=== PATIENT | male | born 1965 | race African-American/Black ===

== ENCOUNTER 2024-09-30 12:00 | Inpatient (IN) | payer MEDICAID ==
[~2024-09-30] VITALS: Ht 172.7 cm; Wt 86.3 kg
[~2024-09-30 12:00] MED LIST: BRIM0.2S17; CLIN1CAP70 PO; DORZ2SOL17; LATA0.008; LEVE100020; SEVE800T10; SUCR5CHW; TIMO0.5S32
--- NOTE | 2024-09-30 13:41 | ED.PDOC ---
History of Present Illness HPI Comments 59M presents to the ER w/ no prior HX associated to the c/c of a cyst. Pt reports on having a "cyst on my bottom, and had it for a while". Pt states that he has had the cyst for 1.5 months. PMHx of HTN and ESRD of T, TH and SAT. Denies chills, fever, N/V/D, SOB, CP or other associated symptoms, modifiers, or recent injuries at this time. Chief Complaint: Abscess Time Seen by MD: 13:25 Primary Care Provider: SHELTON Franco Notes: Nurses Notes, Medications, Allergies Allergies: Coded Allergies: NO KNOWN ALLERGIES (Unverified , 03/12/19) Home Meds Active Scripts Clindamycin Hcl (Clindamycin Hcl) 300 Mg Cap, 300 MG PO TID, #21 Prov:COMPA DUKE MD 03/14/19 Reported Medications Levetiracetam (Levetiracetam) 1,000 Mg Tab 03/14/19 Latanoprost (LATANOPROST) 0.005 % Yris 03/14/19 Brimonidine Tartrate (Brimonidine Tartrate) 0.2 % Yris 03/14/19 Timolol Maleate (Ophth) (Timolol Maleate) 0.5 % Yris 03/14/19 Sevelamer Carbonate (Sevelamer Carbonate) 800 Mg Tab 03/14/19 Dorzolamide Hcl (Dorzolamide Hcl) 2 % Yris 03/14/19 Polynuclear Iron(III)-Oxyhydro (Velphoro) 500 Mg Chw 03/14/19 Information Source: Patient Mode of Arrival: Ambulatory Severity: Moderate Timing: Months Duration: Since onset Prehospital treatment: None Past Medical History PAST MEDICAL HISTORY: ESRD (T, TH and SAT), HTN Surgical History: Denies all surgeries Family History Family History: Reviewed,noncontributory to illness, Unknown Social History Smoker: Non-Smoker Alcohol: Denies ETOH Use Drugs: Denies Drug Use Lives In: Home Constitutional: denies: chills, diaphoresis, fatigue, fever, malaise, sweats, weakness, others EENTM: denies: blurred vision, double vision, ear bleeding, ear discharge, ear drainage, ear pain, ear ringing, eye pain, eye redness, hearing loss, mouth pain, mouth swelling, nasal discharge, nose bleeding, nose congestion, nose pain, photophobia, tearing, throat pain, throat swelling, voice changes, others Respiratory: denies: cough, hemoptysis, orthopnea, SOB at rest, shortness of breath, SOB with excertion, stridor, wheezing, others Cardiovascular: denies: chest pain, dizzy spells, diaphoresis, Dyspnea on exertion, edema, irregular heart beat, left arm pain, lightheadedness, palpitations, PND, syncope, others Gastrointestinal: denies: abdomen distended, abdominal pain, blood streaked bowels, constipated, diarrhea, dysphagia, difficulty swallowing, hematemesis, melena, nausea, poor appetite, poor fluid intake, rectal bleeding, rectal pain, vomiting, others Genitourinary: denies: burning, dysuria, flank pain, frequency, hematuria, incontinence, penile discharge, penile sore, pain, testicle pain, testicle swelling, urgency, others Neurological: denies: dizziness, fainting, headache, left sided numbness, left sided weakness, numbness, paresthesia, pre-existing deficit, right sided numbness, right sided weakness, seizure, speech problems, tingling, tremors, weakness, others Musculoskeletal: denies: back pain, gout, joint pain, joint swelling, muscle pain, muscle stiffness, neck pain, others Integumetry: reports: others (cyst); denies: bruises, change in color, change in hair/nails, dryness, laceration, lesions, lumps, rash, wounds Allergic/Immunocompromised: denies: Difficulty Healing, Frequent Infections, Hives, Itching, others Hematologic/Lymphatic: denies: anemia, blood clots, easy bleeding, easy bruising, swollen glands, others Endocrine: denies: excessive hunger, excessive sweating, excessive thirst, excessive urination, flushing, intolerance to cold, intolerance to heat, unexplained weight gain, unexplained weight loss, others Psychiatric: denies: anxiety, bipolar disorder, depression, hopeless, panic disorder, schizophrenia, sleepless, suicidal, others All Other Systems: Reviewed and Negative Physical Exam General Appearance: Moderate Distress, Normal HEENT: Normal ENT Inspection, Pharynx Normal, TMs Normal Neck: Full Range of Motion, Non-Tender, Normal, Normal Inspection Respiratory: Chest Non-Tender, Lungs Clear, No Accessory Muscle Use, No Respira tory Distress, Normal Breath Sounds Cardiovascular: No Edema, No JVD, No Murmur, No Gallop, Normal Peripheral Pulses, Regular Rate/Rhythm Breast Exam: Deferred Gastrointestinal: No Organomegaly, Non Tender, No Pulsatile Mass, Normal Bowel Sounds, Soft Genitalia: Deferred Pelvic: Deferred Rectal: Deferred Extremities: No calf tenderness, Normal capillary refill, Normal inspection, Normal range of motion, Non-tender, No pedal edema Musculoskeletal : Apperance: Normal Neurologic: Alert, machine stamper II-XII nml as Tested, No Motor Deficits, Normal Affect, Normal Mood, No Sensory Deficits Cerebellar Function: NOT DONE Reflexes: NOT DONE Skin: Dry, Pallor, Warm, Wounds (Sacral) Lymphatic: No Adenopathy Was a procedure done? Was a procedure done?: No Differential Dx Considerations may include: Chronic kidney disease Cellulitis X-Ray, Labs, Meds, VS Vital Signs Date Time Temp Pulse Resp B/P (MAP) Pulse Ox O2 Delivery O2 Flow Rate FiO2 09/30/24 16:33 88 14 139/75 (96) 96 09/30/24 16:24 Room Air* 0 21 09/30/24 14:45 94 16 98 Room Air 09/30/24 14:45 98.6 94 16 143/77 (99) 98 98.6 09/30/24 12:31 98.6 94 16 148/77 (100) 95 Lab Test 09/30/24 14:49 Range/Units White Blood Count 11.2 H 4.4-10.8 10^3/uL Red Blood Count 4.15 L 4.5-5.90 10^6/uL Hemoglobin 10.5 L 13.5-17.5 g/dL Hematocrit 32.9 L 41.0-53.0 % Mean Corpuscular Volume 79.2 L 80.0-100.0 fL Mean Corpuscular Hemoglobin 25.3 L 28.0-32.0 pg Mean Corpuscular Hemoglobin Concent 32.0 32.0-36.0 g/dL Red Cell Distribution Width 18.5 H 11.8-14.3 % Platelet Count 263 140-450 10^3/uL Mean Platelet Volume 8.7 6.9-10.8 fL Neutrophils (%) (Auto) 69.9 37.0-80.0 % Lymphocytes (%) (Auto) 19.5 10.0-50.0 % Monocytes (%) (Auto) 8.0 0.0-12.0 % Eosinophils (%) (Auto) 1.9 0.0-7.0 % Basophils (%) (Auto) 0.7 0.0-2.0 % Neutrophils # (Auto) 7.8 1.6-8.6 10 ^3/uL Lymphocytes # (Auto) 2.2 0.4-5.4 10 ^3/uL Monocytes # (Auto) 0.9 0-1.3 10 ^3/uL Eosinophils # (Auto) 0.2 0-0.8 10 ^3/uL Basophils # (Auto) 0.1 0-0.2 10 ^3/uL Nucleated Red Blood Cells 0.0 % Sodium Level 140 136-145 mmol/L Potassium Level 4.8 3.5-5.1 mmol/L Chloride Level 101 98-107 mmol/L Carbon Dioxide Level 30 20-31 mmol/L Anion Gap 9 5-15 Blood Urea Nitrogen 38 H 9-23 mg/dL Creatinine 10.65 *H 0.700-1.30 mg/dL Glomerular Filtration Rate Calc 5 >90 mL/min BUN/Creatinine Ratio 3.6 L 10.0-20.0 Serum Glucose 80 74-106 mg/dL Calcium Level 9.2 8.7-10.4 mg/dL Patient alert. Has a wound in his sacral area. Vitals stable. Answering all questions. He does get dialysis on Tuesday. Chronic kidney function. WBC elevated. Anemia. Surgical consultation. Nephrology consultation. Reviewed his previous history. Explained to the patient. Continue cardiac monitoring. Was given Rocephin. Was given clindamycin. Time of 1ST Reevaluation: 17:25 Reevaluation 1ST: Unchanged Patient Education/Counseling: Diagnosis, Treatment, Prognosis Family Education/Counseling: No Family Present Departure 1 Departure Time of Disposition: 17:27 Impression: Primary Impression: Cellulitis Qualified Codes: L03.317 - Cellulitis of buttock Additional Impressions: Anemia Qualified Codes: D64.9 - Anemia, unspecified Chronic kidney disease Qualified Codes: N18.9 - Chronic kidney disease, unspecified Disposition: ADMITTED INPATIENT Admit to: Med Surg Condition: Guarded Critical Care Note Critical Care Time?: Yes (45 min-critical care time only) Stability Stability form required: No Heart Score Heart Score: Heart Score Response (Comments) Value History N/A 0 EKG N/A 0 Age N/A 0 Risk Factors N/A 0 Troponin N/A 0 Total 0 I personally scribed for ALBA THORNE MD ([email or web address]) on 09/30/24 at 13:41. Electronically submitted by Raulito Cardoso ([email or web address]). ALBA THORNE MD Sep 30, 2024 13:41
[2024-09-30 15:10] LABS: Basophils # (auto) 0.1 10 ^3/uL (0-0.2); Basophils % (auto) 0.7 % (0.0-2.0); Eosinophils # (auto) 0.2 10 ^3/uL (0-0.8); Eosinophils % (auto) 1.9 % (0.0-7.0); Hematocrit 32.9 % (41.0-53.0); Hemoglobin 10.5 g/dL (13.5-17.5); Lymphocytes # (auto) 2.2 10 ^3/uL (0.4-5.4); Lymphocytes % (auto) 19.5 % (10.0-50.0); Mean Corpuscular Hemoglobin 25.3 pg (28.0-32.0); Mean Corpuscular Volume 79.2 fL (80.0-100.0); Monocytes # (auto) 0.9 10 ^3/uL (0-1.3); Neutrophils # (auto) 7.8 10 ^3/uL (1.6-8.6); Neutrophils % (auto) 69.9 % (37.0-80.0); Platelet Count (auto) 263 10^3/uL (140-450); Red Blood Cells 4.15 10^6/uL (4.5-5.90); Red Cell Distribution Width 18.5 % (11.8-14.3); White Blood Cell 11.2 10^3/uL (4.4-10.8)
[2024-09-30 15:26] LABS: Chloride 101 mmol/L (98-107); Potassium 4.8 mmol/L (3.5-5.1); Sodium 140 mmol/L (136-145)
[2024-09-30 15:27] LABS: Anion Gap 9 (5-15); Carbon Dioxide 30 mmol/L (20-31)
[2024-09-30 15:28] LABS: Calcium 9.2 mg/dL (8.7-10.4)
[2024-09-30 15:32] LABS: Glucose 80 mg/dL (74-106)
[2024-09-30 15:33] LABS: BUN/Creatinine Ratio 3.6 (10.0-20.0); Blood Urea Nitrogen 38 mg/dL (9-23)
[2024-09-30] MEDS: CLINDAMYCIN 300MG IV 50 ML IV ONE (17:40)
[2024-09-30] MEDS: cefTRIAXone 1GM/50ML D5W 50 ML IV ONE (17:40)
[2024-09-30] MEDS ORDERED: NITROGLYCERIN 0.4 MG SL TAB SL PRN (22:00)
[2024-09-30] MEDS ORDERED: MORPHINE SULFATE INJ 2 MG/ml SYRG IV PRN (22:00)
[2024-09-30] MEDS: SODIUM CHLOR 0.9% PF (SALINE LOCK) 10ML VIAL/SYR IV SCH (22:04)
--- NOTE | 2024-09-30 22:44 | DVHHPRES ---
History of Present Illness Resident Creating Document: MERRICK MOREL RESIDENT History of Present Illness This is a 59-year-old male with past medical history of hypertension, ESRD on hemodialysis 3 times a week for last 35 years presented to the ED with a chief complaint of cyst in the left buttock for last 1 month prior to this admission. He mentioned that he developed a cyst 1 month ago in the left buttock and it is popped up and discharging pus mixed with blood for last 3 weeks. He went to urgent care and took antibiotics for this abscess but it is not cured having continuous discharge and he needs to change the dressing 2 or 3 times a day. According to the patient at first the abscess was associated with fever and chills and he finished antibiotics 2 times for this but it did not resolve the abscess that prompted this visit. He denies chest pain, shortness of breath, dizziness, diaphoresis, abdominal pain, nausea, vomiting or any change in bowel and bladder habit. Cardiovascular: HTN Past Medical History Hypertension, ESRD on hemodialysis. Past Surgical History Parathyroidectomy, knee surgery and surgery for the dislocated shoulder on the left side. Family History: None Smoke: No ALCOHOL: none Drugs: None Lives: with Family Review of Systems Constitutional: No: Fever, Chills, Sweats, Weakness, Malaise, Other Eyes: No: Pain, Vision change, Conjunctivae inflammation, Eyelid inflammation, Other, Redness ENT: No: Ear pain, Ear discharge, Nose pain, Nose discharge, Nose congestion, Mouth pain, Mouth swelling, Throat pain, Throat swelling, Other Respiratory: No: Cough, Dry, Shortness of breath, SOB with excertion, Wheezing, Hemoptysis, Pleuritic Pain, Sputum, Wheezing, Other Cardiovascular: No: Chest Pain, Palpitations, Orthopnea, Paroxysmal Noc. Dyspnea, Edema, Lt Headedness, Other Gastrointestinal: No: Nausea, Vomiting, Abdominal Pain, Diarrhea, Constipation, Melena, Hematochezia, Other Genitourinary: No Dysuria, No Frequency, No Incontinence, No Hematuria, No Retention, No Other Musculoskeletal: No: other, neck pain, shoulder pain, arm pain, back pain, hand pain, leg pain, foot pain Skin: Lesions, Other; No: Rash, Jaundice, Bruising Neurological: No: Weakness, Numbness, Incoordination, Change in speech, Confusion, Seizures, Other Allergies: Coded Allergies: NO KNOWN ALLERGIES (Unverified , 03/12/19) Medications Current Medications Medications Dose Ordered Sig/Dane Route Start Time Stop Time Status Last Admin Dose Admin Sodium Chloride 10 ml Q8HR IV 09/30/24 22:00 09/30/24 22:04 10 ML Acetaminophen/ Hydrocodone Bitart 1 tab Q4HP PRN PO 09/30/24 22:00 Nitroglycerin 0.4 mg Q5MINP PRN SL 09/30/24 22:00 Morphine Sulfate 2 mg Q30M PRN IV 09/30/24 22:00 Clindamycin Phosphate 50 ml @ 50 mls/hr Q8HR IV 10/01/24 06:00 Heparin Sodium (Porcine) 5,000 units Q12HR SC 10/01/24 10:00 Exam Vital Signs Vital Signs Date Time Temp Pulse Resp B/P (MAP) Pulse Ox O2 Delivery O2 Flow Rate FiO2 09/30/24 20:22 97.6 92 16 138/72 (94) 99 97.6 09/30/24 16:24 Room Air* 0 21 Exam Physical examination: General Appearance: Alert, Oriented X3, Cooperative, No acute distress HEENT: Atraumatic, PERRLA, EOMI, Mucous membrane moist/pink Respiratory: Clear to auscultation, Normal air movement Cardiovascular: Regular rate, Normal S1, Normal S2, No murmurs, no chest wall t enderness Abdominal: Normal bowel sounds, Soft, No tenderness, No hepatospenomegaly, No masses Extremities: Healed and new av fistula in both upper extremities, No clubbing, No cyanosis, No edema, Normal pulses, No tenderness/swelling Skin,: Discharging abscess in the left buttock, No rashes, No breakdown, No significant lesion Neuro: Normal gait, Normal speech, Strength at 5/5 X4 ext, Normal tone, Sensation intact. Psych/Mental Status: Mental status NL, Mood NL Labs/Xrays Labs Test 09/30/24 14:49 Range/Units White Blood Count 11.2 H 4.4-10.8 10^3/uL Red Blood Count 4.15 L 4.5-5.90 10^6/uL Hemoglobin 10.5 L 13.5-17.5 g/dL Hematocrit 32.9 L 41.0-53.0 % Mean Corpuscular Volume 79.2 L 80.0-100.0 fL Mean Corpuscular Hemoglobin 25.3 L 28.0-32.0 pg Mean Corpuscular Hemoglobin Concent 32.0 32.0-36.0 g/dL Red Cell Distribution Width 18.5 H 11.8-14.3 % Platelet Count 263 140-450 10^3/uL Mean Platelet Volume 8.7 6.9-10.8 fL Neutrophils (%) (Auto) 69.9 37.0-80.0 % Lymphocytes (%) (Auto) 19.5 10.0-50.0 % Monocytes (%) (Auto) 8.0 0.0-12.0 % Eosinophils (%) (Auto) 1.9 0.0-7.0 % Basophils (%) (Auto) 0.7 0.0-2.0 % Neutrophils # (Auto) 7.8 1.6-8.6 10 ^3/uL Lymphocytes # (Auto) 2.2 0.4-5.4 10 ^3/uL Monocytes # (Auto) 0.9 0-1.3 10 ^3/uL Eosinophils # (Auto) 0.2 0-0.8 10 ^3/uL Basophils # (Auto) 0.1 0-0.2 10 ^3/uL Nucleated Red Blood Cells 0.0 % Sodium Level 140 136-145 mmol/L Potassium Level 4.8 3.5-5.1 mmol/L Chloride Level 101 98-107 mmol/L Carbon Dioxide Level 30 20-31 mmol/L Anion Gap 9 5-15 Blood Urea Nitrogen 38 H 9-23 mg/dL Creatinine 10.65 *H 0.700-1.30 mg/dL Glomerular Filtration Rate Calc 5 >90 mL/min BUN/Creatinine Ratio 3.6 L 10.0-20.0 Serum Glucose 80 74-106 mg/dL Calcium Level 9.2 8.7-10.4 mg/dL Assessment/Plan Assessment/Plan Assessment and plan: # Cellulitis of the left buttock - On examination there are multiple discharging abscess in the left buttock. - the count is elevated - IV clindamycin 300 mg t.i.d. - Consulted surgery for possible incision and drainage # ESRD on hemodialysis - Patient is on hemodialysis 3 times a week Tuesday, and Tuesday - Consulted nephrology # DVT prophylaxis - Heparin 5000 units SC b.i.d. Goal of care discussed with the patient for more than 20 minutes full code Plan of treatment discussed with Dr. Watkins Plan discussed with: Patient, Other My Orders Orders - MERRICK MOREL RESIDENT Procedure Category Date Status Time Admit ADMIT 09/30/24 Transmitted 21:55 Allergies ELVIS 09/30/24 In Process 21:55 Code Status CODE 09/30/24 Transmitted 21:55 Renal DIET 10/01/24 Transmitted Standard(2gna,3gk,Lopho) Breakfast Sodium Chloride Lock PHA 09/30/24 In Process (Saline Lock Ns) 22:00 Hydrocodone-Acet PHA 09/30/24 In Process 5/325mg Tab ([place] 22:00 Complete Blood Count LAB 10/01/24 Verified 04:00 Comprehensive LAB 10/01/24 Verified Metabolic Panel 04:00 Sequential ELVIS 09/30/24 In Process Compression Device Nitroglycerin PHA 09/30/24 In Process Sublingual (Ntrostat 22:00 Morphine Sulfate PHA 09/30/24 In Process Injection 22:00 Oxygen By Nasal RT 09/30/24 Transmitted Cannula 21:55 Stat Ekg For Chest ELVIS 09/30/24 In Process Pain 21:55 Notify Md Of Changes ELVIS 09/30/24 In Process From Base 21:55 Pre Owned Sales Consultant For ELVIS 09/30/24 In Process 24 Hours 21:55 Emergency Dysrhythmia ELVIS 09/30/24 In Process Protocol 21:55 Rhythm Strips Once ELVIS 09/30/24 In Process Every Shift 21:55 *Dr. Natasha Diaz -Da CONS 09/30/24 Transmitted Barbara 22:23 Clindamycin 300mg Iv PHA 10/01/24 In Process (Cleocin Iv) 06:00 Heparin Sodium PHA 10/01/24 In Process (Porcine) 10:00 * Surgical Consult CONS 09/30/24 Transmitted MERRICK MOREL RESIDENT Sep 30, 2024 22:44
[2024-10-01] VITALS (7 sets, daily range): BP systolic 149–172; BP diastolic 82–90; PULSE 92–95; RESP 18–20; TEMP 98–99.2; O2SAT 95–98
[2024-10-01 00:01] LABS: INR 1.05 (0.9-1.15); Partial Thromboplastin Time 33.1 SEC (24.5-34.5); Prothrombin Time 11.1 sec (9.3-11.8)
[2024-10-01] MEDS ORDERED: ALBU1NEB5 IN (06:07)
[2024-10-01] MEDS ORDERED: NETA1DRO OP (06:07)
[2024-10-01] MEDS ORDERED: CARV12.544 PO (06:07)
[2024-10-01] MEDS ORDERED: CETI10TA2 PO (06:07)
[2024-10-01] MEDS ORDERED: LEVE500T40 PO (06:07)
[2024-10-01] MEDS ORDERED: SEVE800T7 PO (06:07)
[2024-10-01] MEDS ORDERED: B-CO-6 PO (06:07)
[2024-10-01] MEDS ORDERED: TENA30TA PO (06:07)
[2024-10-01] MEDS ORDERED: DORZ2SOL18 EACHEYE (06:07)
[2024-10-01] MEDS ORDERED: AMLO1TAB22 PO (06:07)
[2024-10-01] MEDS ORDERED: HYDR-4902 PO (06:07)
[2024-10-01 06:31] LABS: Basophils # (auto) 0.1 10 ^3/uL (0-0.2); Basophils % (auto) 0.5 % (0.0-2.0); Eosinophils # (auto) 0.2 10 ^3/uL (0-0.8); Hematocrit 31.6 % (41.0-53.0); Hemoglobin 9.7 g/dL (13.5-17.5); Lymphocytes # (auto) 2.2 10 ^3/uL (0.4-5.4); Lymphocytes % (auto) 17.7 % (10.0-50.0); Mean Corpuscular Hemoglobin 24.3 pg (28.0-32.0); Mean Corpuscular Hgb Conc. 30.7 g/dL (32.0-36.0); Mean Corpuscular Volume 79.2 fL (80.0-100.0); Monocytes % (auto) 8.2 % (0.0-12.0); Neutrophils # (auto) 8.8 10 ^3/uL (1.6-8.6); Neutrophils % (auto) 71.6 % (37.0-80.0); Platelet Count (auto) 238 10^3/uL (140-450); Red Blood Cells 3.99 10^6/uL (4.5-5.90); Red Cell Distribution Width 18.3 % (11.8-14.3); White Blood Cell 12.3 10^3/uL (4.4-10.8)
[2024-10-01 06:38] LABS: Alkaline Phosphatase 53 U/L (46-116); Anion Gap 13 (5-15); BUN/Creatinine Ratio 4.2 (10.0-20.0); Calcium 8.7 mg/dL (8.7-10.4); Carbon Dioxide 27 mmol/L (20-31); Chloride 103 mmol/L (98-107); Glucose 72 mg/dL (74-106); Sodium 143 mmol/L (136-145)
[2024-10-01 06:39] LABS: Albumin 3.8 g/dL (3.2-4.8); Aspartate Aminotransferase 10 U/L (13-40); Bilirubin, Total 0.2 mg/dL (0.2-1.0); Total Protein 7.4 g/dL (5.7-8.2)
[2024-10-01 06:40] LABS: Alanine Aminotransferase < 9 U/L (7-40); Blood Urea Nitrogen 53 mg/dL (9-23)
--- NOTE | 2024-10-01 06:47 | DVH ---
CHEST RADIOGRAPH Indication:shortness of breath Technique: Single frontal view of the chest was obtained Comparison: None FINDINGS: Lines and Tubes: None Lungs: No focal consolidation. Pleura: No effusion. No pneumothorax. Cardiomediastinal contours: Unremarkable Bones: No acute osseous abnormality. IMPRESSION: No acute cardiopulmonary disease.
[2024-10-01] MEDS: CLINDAMYCIN 300MG IV 50 ML IV SCH (06:53)
[2024-10-01] MEDS: HEPARIN SODIUM (PORCINE) 5000 UNITS/ML 1ML VIAL SC SCH (10:30)
--- NOTE | 2024-10-01 17:33 | DVHINCON2 ---
Date of service: Oct 01, [address] Hunt Reason for Consultation ESRD History of Present Illness This is a 59-year-old male with past medical history of ESRD on hemodialysis ,HTN presenting to the ED with a chief complaint of cyst in the left buttock for last 1 month . He mentioned that he developed a cyst 1 month ago in the left buttock and it is popped up and discharging pus mixed with blood for last 3 weeks. He went to urgent care and took antibiotics for this abscess but it is not cured having continuous discharge and he needs to change the dressing 2 or 3 times a day. According to the patient at first the abscess was associated with fever and chills and he finished antibiotics 2 times for this but it did not resolve the abscess that prompted this visit. He denies chest pain, shortness of breath, dizziness, diaphoresis, abdominal pain, nausea, vomiting or any change in bowel and bladder habit. Nephrology consulted for continuation of HD . Last HD was on Sat Past Medical History ESRD HTN Past Surgical History AVF Family History: Diabetes mellitus G8 BROTHER G8 SISTER G8 SISTER FH: CHF (congestive heart failure) G8 FATHER ( at 64-65) FH: pneumonia G8 MOTHER ( from [facility] at 72 yrs old) Allergies: Coded Allergies: NO KNOWN ALLERGIES (Unverified , 03/12/19) Home Meds Reported Medications Albuterol Sulfate (Albuterol Sulfate (5 mg/ml) 0.5%) 1 Neb Neb, 1 NEB IN, INH 10/01/24 Sevelamer Hydrochloride (Renagel) 800 Mg Tab, 800 MG PO TID, TAB 10/01/24 Cetirizine Hcl (Kls Aller-Yogi) 10 Mg Tab, 10 MG PO DAILY, TAB 10/01/24 Netarsudil Dimesylate-Latanopr (Rocklatan 0.02-0.005 %) 1 Koffi Koffi, 1 KOFFI OP HS, KOFFI 10/01/24 Dorzolamide-Timolol (Dorzolamide Hcl/Timolol M) 1 Ml Yris, 1 DROP EACHEYE BID, #10 ML 6 Refills 10/01/24 Carvedilol (Carvedilol) 12.5 Mg Tab, 12.5 MG PO Q12HR for 30 Days, MG 10/01/24 Levetiracetam (Keppra) 500 Mg Tab, 500 MG PO POSTDI, TAB 10/01/24 Amlodipine Besylate (Amlodipine Besylate) 5 Mg Tab, 10 MG PO DAILY for 30 Days, MG 10/01/24 Tenapanor HCl (Xphozah) 30 Mg Tab, 30 MG PO DAILY, TAB 10/01/24 B-Complex W/ C & Folic Acid (Beatriz-Katy Rx) Tab, 1 PO DAILY, TAB 10/01/24 Hydrocodone-Acetaminophen (Hydrocodone Bitartrate/AC 5-325 mg) 1 Tab Tab, 1 TAB PO DAILY, TAB 10/01/24 Current Medications Current Medications Medications (Trade) Dose Ordered Sig/Dane Route PRN Reason Start Time Stop Time Status Last Admin Sodium Chloride (Saline Lock Ns) 10 ml Q8HR IV 09/30/24 22:00 10/01/24 13:22 Acetaminophen/ Hydrocodone Bitart (Robbins 5/325MG Tab) 1 tab Q4HP PRN PO MODERATE PAIN (4-6 PAIN SCALE) 09/30/24 22:00 Nitroglycerin (Ntrostat Sublingual) 0.4 mg Q5MINP PRN SL FOR CHEST PAIN 09/30/24 22:00 Morphine Sulfate 2 mg Q30M PRN IV FOR CHEST PAIN 09/30/24 22:00 Clindamycin Phosphate 50 ml @ 50 mls/hr Q8HR IV 10/01/24 06:00 10/01/24 13:22 Heparin Sodium (Porcine) 5,000 units Q12HR SC 10/01/24 10:00 10/01/24 10:30 Hydralazine HCl (Apresoline Injection) 10 mg Q6HP PRN IV SBP>150 10/01/24 09:00 Review of Systems 12 POINT ROS NEGATIVE EXCEPT IN HPI Vital Signs Vital Signs Date Time Temp Pulse Resp B/P (MAP) Pulse Ox O2 Delivery O2 Flow Rate FiO2 10/01/24 17:00 99.2 94 20 172/90 (117) 96 99.2 10/01/24 08:00 Room Air* 0 21 Physical Exam General Appearance: Alert, Oriented X3, Cooperative, No acute distress HEENT: Atraumatic, PERRLA, EOMI, Mucous membrane moist/pink Respiratory: Clear to auscultation, Normal air movement Cardiovascular: Regular rate, Normal S1, Normal S2, No murmurs, no chest wall tenderness Abdominal: Normal bowel sounds, Soft, No tenderness, No hepatospenomegaly, No masses Extremities: No edema . Left buttock abscess Labs/Diagnostic Data Labs Test 10/01/24 05:05 09/30/24 23:30 Range/Units White Blood Count 12.3 H 4.4-10.8 10^3/uL Red Blood Count 3.99 L 4.5-5.90 10^6/uL Hemoglobin 9.7 L 13.5-17.5 g/dL Hematocrit 31.6 L 41.0-53.0 % Mean Corpuscular Volume 79.2 L 80.0-100.0 fL Mean Corpuscular Hemoglobin 24.3 L 28.0-32.0 pg Mean Corpuscular Hemoglobin Concent 30.7 L 32.0-36.0 g/dL Red Cell Distribution Width 18.3 H 11.8-14.3 % Platelet Count 238 140-450 10^3/uL Mean Platelet Volume 9.0 6.9-10.8 fL Neutrophils (%) (Auto) 71.6 37.0-80.0 % Lymphocytes (%) (Auto) 17.7 10.0-50.0 % Monocytes (%) (Auto) 8.2 0.0-12.0 % Eosinophils (%) (Auto) 2.0 0.0-7.0 % Basophils (%) (Auto) 0.5 0.0-2.0 % Neutrophils # (Auto) 8.8 H 1.6-8.6 10 ^3/uL Lymphocytes # (Auto) 2.2 0.4-5.4 10 ^3/uL Monocytes # (Auto) 1.0 0-1.3 10 ^3/uL Eosinophils # (Auto) 0.2 0-0.8 10 ^3/uL Basophils # (Auto) 0.1 0-0.2 10 ^3/uL Nucleated Red Blood Cells 0.0 % Sodium Level 143 136-145 mmol/L Potassium Level 5.0 3.5-5.1 mmol/L Chloride Level 103 98-107 mmol/L Carbon Dioxide Level 27 20-31 mmol/L Anion Gap 13 5-15 Blood Urea Nitrogen 53 #H 9-23 mg/dL Creatinine 12.51 *H 0.700-1.30 mg/dL Glomerular Filtration Rate Calc 4 >90 mL/min BUN/Creatinine Ratio 4.2 L 10.0-20.0 Serum Glucose 72 L 74-106 mg/dL Calcium Level 8.7 8.7-10.4 mg/dL Phosphorus Level 6.8 H 2.4-5.1 mg/dL Total Bilirubin 0.2 0.2-1.0 mg/dL Aspartate Amino Transferase (AST) 10 L 13-40 U/L Alanine Aminotransferase (ALT) < 9 7-40 U/L Alkaline Phosphatase 53 46-116 U/L Total Protein 7.4 5.7-8.2 g/dL Albumin 3.8 3.2-4.8 g/dL Prothrombin Time 11.1 9.3-11.8 sec Prothrombin Time INR 1.05 0.9-1.15 Activated Partial Thromboplast Time 33.1 24.5-34.5 SEC Microbiology Date/Time Source Procedure Growth Status 10/01/24 05:30 Nose MRSA Screen - Final Complete Assessment ESRD on HD Left buttock abscess HTN Secondary Hyperparathyroidism Plan/Recommendation IV antibiotics . HD on I &D on Tue Plan discussed with: Patient EVANGELISTA MUÑOZ MD Oct 01, 2024 17:33
[2024-10-01] MEDS: hydrALAZINE HCL 20 MG/ML VL IV PRN (18:51)
--- NOTE | 2024-10-01 19:13 | DVHPNRES ---
Progress Note Date Seen: Oct 01, 2024 Resident Creating Document: RAFI NICOLAS Has the PT tested + for MRSA If YES, has PT been informed?: No Medical Necessity Reason Pt with a Central, PICC or Fol: No Subjective Review of Systems This is a 59-year-old male with a past medical history of hypertension and ESRD on hemodialysis 3 times a week for the last 35 years. He presented to the ED with a chief complaint of a draining lesion in the left buttock for the last month prior to this admission. He mentioned that he developed the lesion 1 month ago in the left buttock, and it has been discharging pus mixed with blood for the last 3 weeks. He went to urgent care and took antibiotics for this abscess, but it has not cured, having continuous discharge, and he needs to change the dressing 2 or 3 times a day. According to the patient, at first, the abscess was associated with fever and chills, and he finished antibiotics 2 times for this, but it did not resolve the abscess, prompting this visit. He denies chest pain, shortness of breath, dizziness, diaphoresis, abdominal pain, nausea, vomiting, or any change in bowel and bladder habits. 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 On examination during admission, there was a painful red lesion on the left buttock with multiple sinuses draining pus and scar tissue from previous healed abscesses on the arm, arm bed, and right buttock. Vitally, the patient had elevated bladder pressure; otherwise, vitals were within normal limits. Chest X- ray showed no acute cardiopulmonary abnormality. The patient was admitted for the evaluation of a possible abscess. During the admission, the patient was put on abscess treatment (IV clindamycin with topical mupirocin). Patient reports: No new complaints, Feels better Changes from previous H/P or p: No Changes Objective vital signs Vital Sign Date Time Temp Pulse Resp B/P (MAP) Pulse Ox O2 Delivery O2 Flow Rate FiO2 10/01/24 17:00 99.2 94 20 172/90 (117) 96 99.2 10/01/24 08:00 Room Air* 0 21 Total Intake and Output 09/30/24 09/30/24 10/01/24 15:00 23:00 07:00 Intake Total 100 ml 0 ml Output Total 0 ml Balance 100 ml 0 ml medications Current Medications Medications Dose Ordered Sig/Dane Route Start Time Stop Time Status Last Admin Dose Admin Sodium Chloride 10 ml Q8HR IV 09/30/24 22:00 10/01/24 13:22 10 ML Acetaminophen/ Hydrocodone Bitart 1 tab Q4HP PRN PO 09/30/24 22:00 Nitroglycerin 0.4 mg Q5MINP PRN SL 09/30/24 22:00 Morphine Sulfate 2 mg Q30M PRN IV 09/30/24 22:00 Clindamycin Phosphate 50 ml @ 50 mls/hr Q8HR IV 10/01/24 06:00 10/01/24 13:22 50 MLS/HR Heparin Sodium (Porcine) 5,000 units Q12HR SC 10/01/24 10:00 10/01/24 10:30 5,000 UNITS Hydralazine HCl 10 mg Q6HP PRN IV 10/01/24 09:00 Examination General Appearance: Alert, Oriented X3, Cooperative, No acute distress HEENT: Atraumatic, PERRLA, EOMI, Mucous membrane moist/pink Respiratory: Clear to auscultation, Normal air movement Cardiovascular: Regular rate, Normal S1, Normal S2, No murmurs, no chest wall tenderness Abdominal: Normal bowel sounds, Soft, No tenderness, No hepatospenomegaly, No masses Extremities: No clubbing, No cyanosis, No edema, Normal pulses, No tenderness/swelling Skin: painful red lesion on the left buttock with multiple sinuses draining pus and scar tissue from previous healed abscesses on the arm, arm bed, and right buttock laboratory and microbiology Laboratory Tests 10/01/24 05:05 Test 10/01/24 05:05 Range/Units Serum Glucose 72 L 74-106 mg/dL Microbiology Date/Time Source Procedure Growth Status 10/01/24 05:30 Nose MRSA Screen - Final Complete Labs and/or images reviewed: Labs reviewed by me, Image(s) reviewed by me Problem List/Assessment/Plan Problem List/Assessment/Plan Abscess/Cellulitis of the left buttock Left side dark red lesion with multiple draining sinuses Surgery on the board, plan for tomorrow incision and drainage IV clindamycin Topical mupirocin Wound consult ESRD on hemodialysis Patient is on hemodialysis 3 times a week Tuesday, and Tuesday Nephrology on the board Continue sevelamer Uncontrolled hypertension Continue amlodipine IV hydralazine 10 mg q.6 hours p.r.n. DVT prophylaxis Heparin 5000 units SC b.i.d. Diet Renal Code status Full Code Case discussed with Dr. Watkins Plan discussed with: Patient My Orders My Orders Orders - RAFI NICOLAS Procedure Category Date Status Time Hydralazine Injection PHA 10/01/24 In Process (Apresoline Inject 09:00 Mrsa Screen TAI 10/01/24 Logged 15:32 Cleanse Wound With ELVIS 10/01/24 In Process Wound Clean 17:06 Dietary Evaluation Review Comments: Follow renal standard diet and his HD protocol, encourage PO intake to meet at least 75% of his needs. Expected Outcomes/Goals: Less uremic symptoms. RAFI NICOLAS Oct 01, 2024 19:13
[2024-10-01] MEDS: CARVEDILOL 12.5 MG TAB PO SCH (21:18)
[2024-10-01] MEDS: amLODIPine BESYLATE 5 MG TAB PO ONE (21:18)
[2024-10-01] MEDS: DORZOLAM-TIMOLOL(2/0.5%) OPTH(EYE) SOLN 10ML EACHEYE SCH (22:00)
[2024-10-02] VITALS (10 sets, daily range): BP systolic 126–165; BP diastolic 50–87; PULSE 84–101; RESP 17–19; TEMP 97.7–98.6; O2SAT 95–100
[2024-10-02] MEDS: HYDROcodone-ACET 5/325MG TAB PO PRN (05:41)
[2024-10-02 06:36] LABS: Basophils # (auto) 0 10 ^3/uL (0-0.2); Basophils % (auto) 0.3 % (0.0-2.0); Hematocrit 30.1 % (41.0-53.0); Mean Corpuscular Hgb Conc. 31.4 g/dL (32.0-36.0); Monocytes # (auto) 0.8 10 ^3/uL (0-1.3)
[2024-10-02 06:38] LABS: Eosinophils # (auto) 0.3 10 ^3/uL (0-0.8); Eosinophils % (auto) 2.4 % (0.0-7.0); Hemoglobin 9.4 g/dL (13.5-17.5); Lymphocytes # (auto) 2.5 10 ^3/uL (0.4-5.4); Lymphocytes % (auto) 21.5 % (10.0-50.0); Mean Corpuscular Hemoglobin 24.7 pg (28.0-32.0); Mean Corpuscular Volume 78.8 fL (80.0-100.0); Monocytes % (auto) 6.5 % (0.0-12.0); Neutrophils # (auto) 8.2 10 ^3/uL (1.6-8.6); Neutrophils % (auto) 69.3 % (37.0-80.0); Platelet Count (auto) 251 10^3/uL (140-450); Red Blood Cells 3.82 10^6/uL (4.5-5.90); Red Cell Distribution Width 18.1 % (11.8-14.3); White Blood Cell 11.9 10^3/uL (4.4-10.8)
[2024-10-02 06:46] LABS: Calcium 8.8 mg/dL (8.7-10.4); Chloride 104 mmol/L (98-107); Potassium 5.3 mmol/L (3.5-5.1); Sodium 142 mmol/L (136-145)
[2024-10-02 06:47] LABS: Anion Gap 13 (5-15); Carbon Dioxide 25 mmol/L (20-31)
[2024-10-02 06:52] LABS: BUN/Creatinine Ratio 4.4 (10.0-20.0); Glucose 78 mg/dL (74-106)
[2024-10-02 06:58] LABS: Blood Urea Nitrogen 63 mg/dL (9-23)
[2024-10-02] MEDS: SODIUM ZIRCONIUM CYCL 10 GM PAK PO ONE (08:30)
[2024-10-02] MEDS: SODIUM BICARB 8.4% 50Meq/50ml SYR INJ IV ONE (08:30)
[2024-10-02] MEDS: ALBUTEROL SULF 2.5 MG/0.5ML(0.5%) NEB SOLN NEB ONE (08:46)
[2024-10-02] MEDS: SEVELAMER 800 MG TAB PO SCH (09:13)
[2024-10-02] MEDS: amLODIPine BESYLATE 5 MG TAB PO SCH (09:17)
[2024-10-02] MEDS ORDERED: SODIUM ZIRCONIUM CYCL 10 GM PAK PO SCH (14:00)
--- NOTE | 2024-10-02 14:08 | DVHPN2 ---
Progress Note - Dictate Date Seen: Oct 02, 2024 Has the PT tested + for MRSA If YES, has PT been informed?: No Medical Necessity Reason Pt with a Central, PICC or Fol: No Subjective Patient underwent dialysis today with ultrafiltration of 2 L. No acute issues. vital signs Vital Sign Date Time Temp Pulse Resp B/P (MAP) Pulse Ox O2 Delivery O2 Flow Rate FiO2 10/02/24 10:00 100 Room Air* 0 21 10/02/24 09:17 150/87 10/02/24 09:16 88 10/02/24 09:00 97.7 18 97.7 Total Intake and Output 10/01/24 10/01/24 10/02/24 15:00 23:00 07:00 Intake Total 420 ml 550 ml Output Total 0 ml 0 ml Balance 420 ml 550 ml medications Current Medications Medications Dose Ordered Sig/Dane Route Start Time Stop Time Status Last Admin Dose Admin Sodium Chloride 10 ml Q8HR IV 09/30/24 22:00 10/02/24 13:06 10 ML Acetaminophen/ Hydrocodone Bitart 1 tab Q4HP PRN PO 09/30/24 22:00 10/02/24 05:41 1 TAB Nitroglycerin 0.4 mg Q5MINP PRN SL 09/30/24 22:00 Morphine Sulfate 2 mg Q30M PRN IV 09/30/24 22:00 Clindamycin Phosphate 50 ml @ 50 mls/hr Q8HR IV 10/01/24 06:00 10/02/24 13:02 50 MLS/HR Heparin Sodium (Porcine) 5,000 units Q12HR SC 10/01/24 10:00 10/01/24 21:24 5,000 UNITS Hydralazine HCl 10 mg Q6HP PRN IV 10/01/24 09:00 10/01/24 18:51 10 MG Amlodipine Besylate 10 mg DAILY PO 10/02/24 10:00 Carvedilol 12.5 mg Q12HR PO 10/01/24 22:00 10/01/24 21:18 12.5 MG Levetiracetam 500 mg POSTDI PO 10/01/24 20:00 Sevelamer HCl 800 mg TIDWM PO 10/02/24 08:00 10/02/24 13:02 800 MG Dorzolamide/ Timolol 1 drop BID EACHEYE 10/01/24 22:00 Zirconium Oxide 10 gm TID PO 10/02/24 14:00 10/04/24 06:01 objective General Appearance: Alert, Oriented X3, Cooperative, No acute distress HEENT: Atraumatic, PERRLA, EOMI, Mucous membrane moist/pink Respiratory: Clear to auscultation, Normal air movement Cardiovascular: Regular rate, Normal S1, Normal S2, No murmurs, no chest wall tenderness Abdominal: Normal bowel sounds, Soft, No tenderness, No hepatospenomegaly, No masses Extremities: No edema . Left buttock abscess laboratory and microbiology Laboratory Tests 10/02/24 05:56 Test 10/02/24 05:56 Range/Units Serum Glucose 78 74-106 mg/dL Problem List ESRD on HD Left buttock abscess HTN Secondary Hyperparathyroidism Assessment/Plan Continue dialysis on TTS schedule. No indication to further continue Lokelma. Labs in a.m. Continue with IV antibiotics I and D tomorrow. Dietary Evaluation Review Comments: Follow renal standard diet and his HD protocol, encourage PO intake to meet at least 75% of his needs. Expected Outcomes/Goals: Less uremic symptoms. Plan discussed with: Patient EVANGELISTA MUÑOZ MD Oct 02, 2024 14:08
[2024-10-02] MEDS ORDERED: hydrALAZINE HCL 20 MG/ML VL IV PRN (15:45)
--- NOTE | 2024-10-02 15:48 | DVHPNRES ---
Progress Note Date Seen: Oct 02, 2024 Resident Creating Document: RAFI NICOLAS YEHUDA Has the PT tested + for MRSA If YES, has PT been informed?: No Medical Necessity Reason Pt with a Central, PICC or Fol: No Subjective Review of Systems Patient seen and examined at the bedside. Patient is feeling better since admission but has mild left buttock pain. Patient reports: No new complaints Changes from previous H/P or p: Changes Objective vital signs Vital Sign Date Time Temp Pulse Resp B/P (MAP) Pulse Ox O2 Delivery O2 Flow Rate FiO2 10/02/24 13:00 97.8 86 17 160/75 (103) 97 97.8 10/02/24 10:00 Room Air* 0 21 Total Intake and Output 10/01/24 10/01/24 10/02/24 15:00 23:00 07:00 Intake Total 420 ml 550 ml Output Total 0 ml 0 ml Balance 420 ml 550 ml medications Current Medications Medications Dose Ordered Sig/Dane Route Start Time Stop Time Status Last Admin Dose Admin Sodium Chloride 10 ml Q8HR IV 09/30/24 22:00 10/02/24 13:06 10 ML Acetaminophen/ Hydrocodone Bitart 1 tab Q4HP PRN PO 09/30/24 22:00 10/02/24 05:41 1 TAB Nitroglycerin 0.4 mg Q5MINP PRN SL 09/30/24 22:00 Morphine Sulfate 2 mg Q30M PRN IV 09/30/24 22:00 Clindamycin Phosphate 50 ml @ 50 mls/hr Q8HR IV 10/01/24 06:00 10/02/24 13:02 50 MLS/HR Heparin Sodium (Porcine) 5,000 units Q12HR SC 10/01/24 10:00 10/01/24 21:24 5,000 UNITS Hydralazine HCl 10 mg Q6HP PRN IV 10/01/24 09:00 10/01/24 18:51 10 MG Amlodipine Besylate 10 mg DAILY PO 10/02/24 10:00 Carvedilol 12.5 mg Q12HR PO 10/01/24 22:00 10/01/24 21:18 12.5 MG Levetiracetam 500 mg POSTDI PO 10/01/24 20:00 Sevelamer HCl 800 mg TIDWM PO 10/02/24 08:00 10/02/24 13:02 800 MG Dorzolamide/ Timolol 1 drop BID EACHEYE 10/01/24 22:00 Examination General Appearance: Alert, Oriented X3, Cooperative, No acute distress HEENT: Atraumatic, PERRLA, EOMI, Mucous membrane moist/pink Respiratory: Clear to auscultation, Normal air movement Cardiovascular: Regular rate, Normal S1, Normal S2, No murmurs, no chest wall tenderness Abdominal: Normal bowel sounds, Soft, No tenderness, No hepatospenomegaly, No masses Extremities: No clubbing, No cyanosis, No edema, Normal pulses, No tenderness/swelling Skin: painful red lesion on the left buttock with multiple sinuses draining pus and scar tissue from previous healed abscesses on the arm, arm bed, and right buttock laboratory and microbiology Laboratory Tests 10/02/24 05:56 Test 10/02/24 05:56 Range/Units Serum Glucose 78 74-106 mg/dL Microbiology Date/Time Source Procedure Growth Status 10/01/24 05:30 Nose MRSA Screen - Final Complete Labs and/or images reviewed: Labs reviewed by me, Image(s) reviewed by me Problem List/Assessment/Plan Problem List/Assessment/Plan Abscess/Cellulitis of the left buttock Left side dark red lesion with multiple draining sinuses Surgery on the board, plan incision and drainage for Tuesday Continue IV clindamycin Continue Topical mupirocin Wound consult ESRD on hemodialysis Patient is on hemodialysis 3 times a week Tuesday, and Tuesday Dialysis performed today and 2 L of removed Continue sevelamer Uncontrolled hypertension Continue amlodipine Continue carvedilol IV hydralazine 20 mg q.6 hours p.r.n. History of seizure Continue Keppra tablet DVT prophylaxis Heparin 5000 units SC b.i.d. Transaminitis Monitoring Hyperphosphatemia Continue sevelamer Secondary hyperparathyroidism Parathyroidectomy has been performed Monitoring Mild hyperkalemia Monitoring Glaucoma Continue home medication Diet Renal Code status Full Code Case discussed with Dr. June Clark discussed with: Patient My Orders My Orders Orders - RAFI NICOLAS RESDIADALID Procedure Category Date Status Time Cleanse Wound With ELVIS 10/01/24 In Process Wound Clean 17:06 Amlodipine Tablet PHA 10/02/24 In Process (Norvasc Tablet) 10:00 Carvedilol Tablet PHA 10/01/24 In Process (Coreg Tablet) 22:00 Levetiracetam Tablet PHA 10/01/24 In Process (Keppra Tablet) 20:00 Dorzolamide-Timolol PHA 10/01/24 In Process Opthalmic (Cosopt Op 22:00 Sevelamer (Renagel) PHA 10/02/24 In Process 08:00 Dietary Evaluation Review Comments: Follow renal standard diet and his HD protocol, encourage PO intake to meet at least 75% of his needs. Expected Outcomes/Goals: Less uremic symptoms. Date of Service: Oct 02, 2024 Billing Provider: FAIZA CA MD Common Visit Codes: [id number] INP/OBS CARE(HIGH) RAFI NICOLAS RESDIADALID Oct 02, 2024 15:48 FAIZA CA MD Oct 03, 2024 09:50
[2024-10-02] MEDS: EPOETIN ALFA-EPBX 4,000 UNIT/ML VIAL SC ONE (21:14)
[2024-10-02] MEDS: levETIRAcetam 500 MG TAB PO SCH (21:22)
[2024-10-02] MEDS ORDERED: FAMO40TA7 PO (21:51)
[2024-10-02] MEDS: LATANOPROST OP SCH (22:00)
[2024-10-02] MEDS: NETARSUDIL OP SCH (22:00)
[2024-10-02] MEDS: FAMOTIDINE 20 MG TAB PO ONE (22:26)
[2024-10-03] VITALS (9 sets, daily range): BP systolic 137–147; BP diastolic 62–94; PULSE 64–108; RESP 15–20; TEMP 98–99; O2SAT 91–98
[2024-10-03 06:47] LABS: Basophils # (auto) 0 10 ^3/uL (0-0.2); Eosinophils # (auto) 0.2 10 ^3/uL (0-0.8); Eosinophils % (auto) 2.1 % (0.0-7.0); Hemoglobin 9.9 g/dL (13.5-17.5); Lymphocytes # (auto) 2.3 10 ^3/uL (0.4-5.4)
[2024-10-03 06:50] LABS: Basophils % (auto) 0.4 % (0.0-2.0); Hematocrit 30.6 % (41.0-53.0); Mean Corpuscular Hemoglobin 25.5 pg (28.0-32.0); Mean Corpuscular Hgb Conc. 32.4 g/dL (32.0-36.0); Mean Corpuscular Volume 78.8 fL (80.0-100.0); Monocytes # (auto) 0.8 10 ^3/uL (0-1.3); Monocytes % (auto) 7.5 % (0.0-12.0); Neutrophils # (auto) 7.6 10 ^3/uL (1.6-8.6); Platelet Count (auto) 276 10^3/uL (140-450); Red Blood Cells 3.88 10^6/uL (4.5-5.90); Red Cell Distribution Width 18.3 % (11.8-14.3)
[2024-10-03 06:52] LABS: Calcium 9.1 mg/dL (8.7-10.4); Chloride 101 mmol/L (98-107); Potassium 4.8 mmol/L (3.5-5.1); Sodium 140 mmol/L (136-145)
[2024-10-03 06:53] LABS: Anion Gap 13 (5-15); Carbon Dioxide 26 mmol/L (20-31)
[2024-10-03 06:58] LABS: BUN/Creatinine Ratio 4.3 (10.0-20.0); Glucose 82 mg/dL (74-106)
[2024-10-03 07:05] LABS: Blood Urea Nitrogen 48 mg/dL (9-23)
[2024-10-03] MEDS: FAMOTIDINE 20 MG TAB PO SCH (10:00)
[2024-10-03] MEDS ORDERED: fentaNYL CITRATE 100 MCG/2 ML VL ONE ×2 (10:49→11:24)
[2024-10-03] MEDS ORDERED: PROPOFOL 10 MG/ML 20 ML IV ONE (10:49)
[2024-10-03] MEDS ORDERED: ONDANSETRON HCL 4 MG/2 ML VIAL ONE (11:20)
[2024-10-03] MEDS ORDERED: ePHEDrine SULFATE 50 MG/ML AMP ONE (11:20)
[2024-10-03] MEDS: ceFAZolin 2 GM/D5W100ml 100 ML IV ONE (11:41)
[2024-10-03] MEDS: LIDOCAINE W/ EPINEPHRINE 1% 20ML VIAL ONE (11:54)
[2024-10-03] MEDS: BUPIVACAINE 0.5% P/F INJ 10 ML VIAL ONE (11:54)
--- NOTE | 2024-10-03 12:08 | DVHOP2 ---
Operative Report - 2 Report Details Date: 10/03/24 Preop Diagnosis: MULTIPLE LEFT BUTTOCK ABSCESS Postop Diagnosis: MULTIPLE LEFT BUTTOCK ABSCESS Surgeon: Dr. aJsmeet Apodaca Clinical Staff Pharmacist: JOHN Bay Anesthesiologist: Dr. Lemos Anesthesia: General Consent: The patient was informed of the risks and benefits of the procedure. These include but are not limited to complications of anesthesia, postoperative infection, incomplete relief of symptoms, recurrence of symptoms, damage to blood vessels, nerves and tendons, deep venous thrombosis, pulmonary embolism and possible need for repeat surgery in the future. Name of Procedure Performed incision and drainage of multiple left buttock abscess Procedure Details Procedure Details: Under the supervision of Dr. Apodaca and adequate anesthesia the patient was positioned in a right lateral position. The area was prepped and draped. Multiple incisions were made and purulent drainage was expelled. All incision sites were irrigated with normal saline and packed with 1/4 inch iodoform. Dressing was placed and secured with tape. All blade, needles and sponge counts were correct. Patient was transferred to recovery with out incident. Specimen: wound tissues , purulent drainage Condition Good Disposition Still a Patient SEVEN NO NP Oct 03, 2024 12:08
[2024-10-03] MEDS ORDERED: HYDROmorphone HCL 2 MG/ML VL/or syr IV PRN (12:15)
[2024-10-03] MEDS ORDERED: ACETAMINOPHEN IV 1000 MG/100ML (10MG/ML) IV PRN (12:15)
[2024-10-03] MEDS ORDERED: LABETALOL HCL 20 MG/4 ML VL IV PRN (12:15)
[2024-10-03] MEDS: BRIMONIDINE 0.2% OPTH Soln 5ml EACHEYE SCH (14:00)
[2024-10-03] MEDS ORDERED: CLIN1CAP70 PO (14:48)
--- NOTE | 2024-10-03 15:09 | DVHPN2 ---
Progress Note - Dictate Date Seen: Oct 03, 2024 Has the PT tested + for MRSA If YES, has PT been informed?: No Medical Necessity Reason Pt with a Central, PICC or Fol: No Subjective Underwent I and D of gluteal abscess today. vital signs Vital Sign Date Time Temp Pulse Resp B/P (MAP) Pulse Ox O2 Delivery O2 Flow Rate FiO2 10/03/24 13:04 96 15 96 Mask 5.0 10/03/24 13:04 96 10/03/24 12:50 142/77 (98) 10/03/24 12:04 98.9 98.9 Total Intake and Output 10/02/24 10/02/24 10/03/24 15:00 23:00 07:00 Intake Total 450 ml 50 ml Output Total 0 ml Balance 450 ml 50 ml medications Current Medications Medications Dose Ordered Sig/Dane Route Start Time Stop Time Status Last Admin Dose Admin Sodium Chloride 10 ml Q8HR IV 09/30/24 22:00 10/03/24 14:38 10 ML Acetaminophen/ Hydrocodone Bitart 1 tab Q4HP PRN PO 09/30/24 22:00 10/03/24 14:59 1 TAB Nitroglycerin 0.4 mg Q5MINP PRN SL 09/30/24 22:00 Morphine Sulfate 2 mg Q30M PRN IV 09/30/24 22:00 Clindamycin Phosphate 50 ml @ 50 mls/hr Q8HR IV 10/01/24 06:00 10/03/24 14:38 50 MLS/HR Heparin Sodium (Porcine) 5,000 units Q12HR SC 10/01/24 10:00 10/02/24 21:26 5,000 UNITS Amlodipine Besylate 10 mg DAILY PO 10/02/24 10:00 Carvedilol 12.5 mg Q12HR PO 10/01/24 22:00 10/02/24 21:15 12.5 MG Levetiracetam 500 mg POSTDI PO 10/01/24 20:00 10/02/24 21:22 500 MG Sevelamer HCl 800 mg TIDWM PO 10/02/24 08:00 10/02/24 18:47 800 MG Dorzolamide/ Timolol 1 drop BID EACHEYE 10/01/24 22:00 Hydralazine HCl 20 mg Q6HP PRN IV 10/02/24 15:45 Patient Own Medication 1 mirta HS OP 10/02/24 22:00 Famotidine 20 mg DAILY PO 10/03/24 10:00 Brimonidine Tartrate 1 drop DAILY EACHEYE 10/03/24 10:00 Labetalol HCl 5 mg [id number] PRN IV 10/03/24 12:15 10/03/24 16:00 objective General Appearance: Alert, Oriented X3, Cooperative, No acute distress HEENT: Atraumatic, PERRLA, EOMI, Mucous membrane moist/pink Respiratory: Clear to auscultation, Normal air movement Cardiovascular: Regular rate, Normal S1, Normal S2, No murmurs, no chest wall tenderness Abdominal: Normal bowel sounds, Soft, No tenderness, No hepatospenomegaly, No masses Extremities: No edema . Left buttock abscess laboratory and microbiology Laboratory Tests 10/03/24 05:59 Test 10/03/24 05:59 Range/Units Serum Glucose 82 74-106 mg/dL Problem List ESRD on HD Left gluteal abscess s/p I&D HTN Secondary Hyperparathyroidism Assessment/Plan Continue dialysis on TTS schedule. Continue with IV antibiotics s/p I and D Dietary Evaluation Review Comments: Follow renal standard diet and his HD protocol, encourage PO intake to meet at least 75% of his needs. Expected Outcomes/Goals: Less uremic symptoms. Plan discussed with: Patient EVANGELISTA MUÑOZ MD Oct 03, 2024 15:09
--- NOTE | 2024-10-03 18:29 | DVHPNRES ---
Progress Note Date Seen: Oct 03, 2024 Resident Creating Document: RAFI NICOLAS YEHUDA Has the PT tested + for MRSA If YES, has PT been informed?: No Medical Necessity Reason Pt with a Central, PICC or Fol: No Subjective Review of Systems Seen and examined at the bedside. Patient feeling since admission, complained of pain on left hip Patient reports: No new complaints Changes from previous H/P or p: No Changes Objective vital signs Vital Sign Date Time Temp Pulse Resp B/P (MAP) Pulse Ox O2 Delivery O2 Flow Rate FiO2 10/03/24 17:27 98.0 94 20 142/80 (100) 91 98.0 10/03/24 13:04 Mask 5.0 10/03/24 13:04 96 Total Intake and Output 10/02/24 10/02/24 10/03/24 15:00 23:00 07:00 Intake Total 450 ml 50 ml Output Total 0 ml Balance 450 ml 50 ml medications Current Medications Medications Dose Ordered Sig/Dane Route Start Time Stop Time Status Last Admin Dose Admin Sodium Chloride 10 ml Q8HR IV 09/30/24 22:00 10/03/24 14:38 10 ML Acetaminophen/ Hydrocodone Bitart 1 tab Q4HP PRN PO 09/30/24 22:00 10/03/24 14:59 1 TAB Nitroglycerin 0.4 mg Q5MINP PRN SL 09/30/24 22:00 Morphine Sulfate 2 mg Q30M PRN IV 09/30/24 22:00 Clindamycin Phosphate 50 ml @ 50 mls/hr Q8HR IV 10/01/24 06:00 10/03/24 14:38 50 MLS/HR Heparin Sodium (Porcine) 5,000 units Q12HR SC 10/01/24 10:00 10/02/24 21:26 5,000 UNITS Amlodipine Besylate 10 mg DAILY PO 10/02/24 10:00 Carvedilol 12.5 mg Q12HR PO 10/01/24 22:00 10/02/24 21:15 12.5 MG Levetiracetam 500 mg POSTDI PO 10/01/24 20:00 10/02/24 21:22 500 MG Sevelamer HCl 800 mg TIDWM PO 10/02/24 08:00 10/02/24 18:47 800 MG Dorzolamide/ Timolol 1 drop BID EACHEYE 10/01/24 22:00 Hydralazine HCl 20 mg Q6HP PRN IV 10/02/24 15:45 Patient Own Medication 1 mirta HS OP 10/02/24 22:00 Famotidine 20 mg DAILY PO 10/03/24 10:00 Brimonidine Tartrate 1 drop DAILY EACHEYE 10/03/24 10:00 Examination General Appearance: Alert, Oriented X3, Cooperative, No acute distress HEENT: Atraumatic, PERRLA, EOMI, Mucous membrane moist/pink Respiratory: Clear to auscultation, Normal air movement Cardiovascular: Regular rate, Normal S1, Normal S2, No murmurs, no chest wall tenderness Abdominal: Normal bowel sounds, Soft, No tenderness, No hepatospenomegaly, No masses Extremities: No clubbing, No cyanosis, No edema, Normal pulses, No tenderness/swelling Skin: painful red lesion on the left buttock with multiple sinuses draining pus and scar tissue from previous healed abscesses on the arm, arm bed, and right buttock laboratory and microbiology Laboratory Tests 10/03/24 05:59 Test 10/03/24 05:59 Range/Units Serum Glucose 82 74-106 mg/dL Microbiology Date/Time Source Procedure Growth Status 10/01/24 05:30 Nose MRSA Screen - Final Complete Labs and/or images reviewed: Labs reviewed by me, Image(s) reviewed by me Problem List/Assessment/Plan Problem List/Assessment/Plan Abscess/Cellulitis of the left buttock Left side dark red lesion with multiple draining sinuses Surgery on the board, incision and drainage of multiple left buttock abscess performed Continue IV clindamycin Continue Topical mupirocin Wound consult ESRD on hemodialysis Patient is on hemodialysis 3 times a week Tuesday, and Tuesday Dialysis performed today and 2 L of removed Continue sevelamer Uncontrolled hypertension Continue amlodipine Continue carvedilol IV hydralazine 20 mg q.6 hours p.r.n. History of seizure Continue Keppra tablet DVT prophylaxis Heparin 5000 units SC b.i.d. Transaminitis Monitoring Hyperphosphatemia Continue sevelamer Secondary hyperparathyroidism Parathyroidectomy has been performed Monitoring Mild hyperkalemia Monitoring Glaucoma Continue home medication Diet Renal Code status Full Code Case discussed with Dr. Watkins Plan discussed with: Patient, Other (RN) Dietary Evaluation Review Comments: Follow renal standard diet and his HD protocol, encourage PO intake to meet at least 75% of his needs. Expected Outcomes/Goals: Less uremic symptoms. Date of Service: Oct 03, 2024 Billing Provider: FAIZA CA MD Common Visit Codes: [id number] INP/OBS CARE(HIGH) ZAHRAAJARONRAFI MORGAN RESDIADALID Oct 03, 2024 18:29 FAIZA CA MD Oct 04, 2024 19:02
[2024-10-04] VITALS (15 sets, daily range): BP systolic 108–164; BP diastolic 64–81; PULSE 91–110; RESP 16–20; TEMP 97.5–100.3; O2SAT 92–100
[2024-10-04] MEDS: ONDANSETRON HCL 4 MG/2 ML VIAL IV ONE (02:47)
[2024-10-04 07:04] LABS: Carbon Dioxide 24 mmol/L (20-31)
[2024-10-04 07:05] LABS: Calcium 8.5 mg/dL (8.7-10.4)
[2024-10-04 07:10] LABS: BUN/Creatinine Ratio 4.4 (10.0-20.0); Glucose 85 mg/dL (74-106)
[2024-10-04 07:12] LABS: Basophils # (auto) 0 10 ^3/uL (0-0.2); Basophils % (auto) 0.3 % (0.0-2.0); Eosinophils # (auto) 0.1 10 ^3/uL (0-0.8); Eosinophils % (auto) 0.7 % (0.0-7.0); Hematocrit 30.7 % (41.0-53.0); Hemoglobin 9.4 g/dL (13.5-17.5); Lymphocytes # (auto) 0.5 10 ^3/uL (0.4-5.4); Lymphocytes % (auto) 6.4 % (10.0-50.0); Mean Corpuscular Hemoglobin 24.9 pg (28.0-32.0); Mean Corpuscular Hgb Conc. 30.6 g/dL (32.0-36.0); Mean Corpuscular Volume 81.4 fL (80.0-100.0); Monocytes # (auto) 0.5 10 ^3/uL (0-1.3); Monocytes % (auto) 6.1 % (0.0-12.0); Neutrophils # (auto) 7.4 10 ^3/uL (1.6-8.6); Neutrophils % (auto) 86.5 % (37.0-80.0); Nucleated Red Blood Cells % 0.1 %; Platelet Count (auto) 234 10^3/uL (140-450); Red Blood Cells 3.77 10^6/uL (4.5-5.90); Red Cell Distribution Width 18.5 % (11.8-14.3); White Blood Cell 8.6 10^3/uL (4.4-10.8)
[2024-10-04 07:16] LABS: Blood Urea Nitrogen 61 mg/dL (9-23)
[2024-10-04 07:17] LABS: Anion Gap 13 (5-15); Chloride 102 mmol/L (98-107); Sodium 139 mmol/L (136-145)
[2024-10-04 07:21] LABS: Potassium 6.3 mmol/L (3.5-5.1)
[2024-10-04] MEDS: SODIUM CHL 0.9% 1000 ML BAG XX ONE ×2 (08:09→13:30)
--- NOTE | 2024-10-04 08:48 | DVHPN2 ---
Progress Note Date Seen: Oct 04, 2024 Has the PT tested + for MRSA If YES, has PT been informed?: No Medical Necessity Reason Pt with a Central, PICC or Fol: No Subjective Patient reports: No new complaints, Feels better Objective vital signs Vital Sign Date Time Temp Pulse Resp B/P (MAP) Pulse Ox O2 Delivery O2 Flow Rate FiO2 10/04/24 05:00 97.5 106 20 136/81 (99) 92 97.5 10/03/24 20:00 Room Air* 0 21 Total Intake and Output 10/03/24 10/03/24 10/04/24 15:00 23:00 07:00 Intake Total 100 ml 400 ml Balance 100 ml 400 ml medications Current Medications Medications Dose Ordered Sig/Dane Route Start Time Stop Time Status Last Admin Dose Admin Sodium Chloride 10 ml Q8HR IV 09/30/24 22:00 10/04/24 06:25 10 ML Acetaminophen/ Hydrocodone Bitart 1 tab Q4HP PRN PO 09/30/24 22:00 10/03/24 14:59 1 TAB Nitroglycerin 0.4 mg Q5MINP PRN SL 09/30/24 22:00 Morphine Sulfate 2 mg Q30M PRN IV 09/30/24 22:00 Clindamycin Phosphate 50 ml @ 50 mls/hr Q8HR IV 10/01/24 06:00 10/04/24 06:21 50 MLS/HR Heparin Sodium (Porcine) 5,000 units Q12HR SC 10/01/24 10:00 10/03/24 22:41 5,000 UNITS Amlodipine Besylate 10 mg DAILY PO 10/02/24 10:00 Carvedilol 12.5 mg Q12HR PO 10/01/24 22:00 10/03/24 22:44 12.5 MG Levetiracetam 500 mg POSTDI PO 10/01/24 20:00 10/02/24 21:22 500 MG Sevelamer HCl 800 mg TIDWM PO 10/02/24 08:00 10/04/24 08:11 800 MG Dorzolamide/ Timolol 1 drop BID EACHEYE 10/01/24 22:00 Hydralazine HCl 20 mg Q6HP PRN IV 10/02/24 15:45 Patient Own Medication 1 mirta HS OP 10/02/24 22:00 Famotidine 20 mg DAILY PO 10/03/24 10:00 Brimonidine Tartrate 1 drop DAILY EACHEYE 10/03/24 10:00 10/03/24 18:55 1 DROP laboratory and microbiology Laboratory Tests 10/04/24 06:11 Test 10/04/24 06:11 Range/Units Serum Glucose 85 74-106 mg/dL Problem List/Assessment/Plan Problem List/Assessment/Plan 10/04/24 no new complaints , patient doing well, patient feels better, change packing daily Plan discussed with: Patient Dietary Evaluation Review Comments: Follow renal standard diet and his HD protocol, encourage PO intake to meet at least 75% of his needs. Expected Outcomes/Goals: Less uremic symptoms. SEVEN NO NP Oct 04, 2024 08:48
[2024-10-04] MEDS: ALBUTEROL SULF 2.5 MG/0.5ML(0.5%) NEB SOLN NEB ONE (10:24)
[2024-10-04] MEDS: SODIUM BICARB 8.4% 50Meq/50ml SYR INJ IV ONE (10:30)
[2024-10-04] MEDS: CALCIUM GLUC 1,000mg/50ml-NS 50 ML IV ONE (10:31)
--- NOTE | 2024-10-04 16:34 | DVHPN2 ---
Progress Note - Dictate Date Seen: Oct 04, 2024 Has the PT tested + for MRSA If YES, has PT been informed?: No Medical Necessity Reason Pt with a Central, PICC or Fol: No Subjective s/p HD today vital signs Vital Sign Date Time Temp Pulse Resp B/P (MAP) Pulse Ox O2 Delivery O2 Flow Rate FiO2 10/04/24 13:12 99.4 110 18 131/73 (92) 96 99.4 10/04/24 10:30 Room Air* 0 21 Total Intake and Output 10/03/24 10/03/24 10/04/24 15:00 23:00 07:00 Intake Total 100 ml 400 ml Balance 100 ml 400 ml medications Current Medications Medications Dose Ordered Sig/Dane Route Start Time Stop Time Status Last Admin Dose Admin Sodium Chloride 10 ml Q8HR IV 09/30/24 22:00 10/04/24 06:25 10 ML Acetaminophen/ Hydrocodone Bitart 1 tab Q4HP PRN PO 09/30/24 22:00 10/04/24 12:56 1 TAB Nitroglycerin 0.4 mg Q5MINP PRN SL 09/30/24 22:00 Morphine Sulfate 2 mg Q30M PRN IV 09/30/24 22:00 Clindamycin Phosphate 50 ml @ 50 mls/hr Q8HR IV 10/01/24 06:00 10/04/24 06:21 50 MLS/HR Heparin Sodium (Porcine) 5,000 units Q12HR SC 10/01/24 10:00 10/03/24 22:41 5,000 UNITS Amlodipine Besylate 10 mg DAILY PO 10/02/24 10:00 Carvedilol 12.5 mg Q12HR PO 10/01/24 22:00 10/03/24 22:44 12.5 MG Levetiracetam 500 mg POSTDI PO 10/01/24 20:00 10/02/24 21:22 500 MG Sevelamer HCl 800 mg TIDWM PO 10/02/24 08:00 10/04/24 12:51 800 MG Dorzolamide/ Timolol 1 drop BID EACHEYE 10/01/24 22:00 Hydralazine HCl 20 mg Q6HP PRN IV 10/02/24 15:45 Patient Own Medication 1 mirta HS OP 10/02/24 22:00 Famotidine 20 mg DAILY PO 10/03/24 10:00 10/04/24 10:31 20 MG Brimonidine Tartrate 1 drop DAILY EACHEYE 10/03/24 10:00 10/04/24 10:33 1 DROP objective General Appearance: Alert, Oriented X3, Cooperative, No acute distress HEENT: Atraumatic, PERRLA, EOMI, Mucous membrane moist/pink Respiratory: Clear to auscultation, Normal air movement Cardiovascular: Regular rate, Normal S1, Normal S2, No murmurs, no chest wall tenderness Abdominal: Normal bowel sounds, Soft, No tenderness, No hepatospenomegaly, No masses Extremities: No edema . Left buttock abscess laboratory and microbiology Laboratory Tests 10/04/24 06:11 Test 10/04/24 06:11 Range/Units Serum Glucose 85 74-106 mg/dL Problem List ESRD on HD Left gluteal abscess s/p I&D HTN Secondary Hyperparathyroidism Assessment/Plan Continue dialysis on TTS schedule. Continue with IV antibiotics s/p I and D dc planning as per primary Dietary Evaluation Review Comments: Follow renal standard diet and his HD protocol, encourage PO intake to meet at least 75% of his needs. Expected Outcomes/Goals: Less uremic symptoms. Plan discussed with: Patient EVANGELISTA MUÑOZ MD Oct 04, 2024 16:34
[2024-10-04] MEDS ORDERED: VANCOMYCIN PER PHARMACY 0 MG IV SCH (17:45)
--- NOTE | 2024-10-04 18:35 | DVHPNRES ---
Progress Note Date Seen: Oct 04, 2024 Resident Creating Document: RAFI NICOLAS YEHUDA Has the PT tested + for MRSA If YES, has PT been informed?: No Medical Necessity Reason Pt with a Central, PICC or Fol: No Subjective Review of Systems Seen and examined at the bedside. Patient feeling since admission, complained of pain on left hip Patient reports: No new complaints Changes from previous H/P or p: No Changes Objective vital signs Vital Sign Date Time Temp Pulse Resp B/P (MAP) Pulse Ox O2 Delivery O2 Flow Rate FiO2 10/04/24 17:31 99.4 91 17 160/72 (101) 96 99.4 10/04/24 10:30 Room Air* 0 21 Total Intake and Output 10/03/24 10/03/24 10/04/24 15:00 23:00 07:00 Intake Total 100 ml 400 ml Balance 100 ml 400 ml medications Current Medications Medications Dose Ordered Sig/Dane Route Start Time Stop Time Status Last Admin Dose Admin Sodium Chloride 10 ml Q8HR IV 09/30/24 22:00 10/04/24 17:35 10 ML Acetaminophen/ Hydrocodone Bitart 1 tab Q4HP PRN PO 09/30/24 22:00 10/04/24 12:56 1 TAB Nitroglycerin 0.4 mg Q5MINP PRN SL 09/30/24 22:00 Morphine Sulfate 2 mg Q30M PRN IV 09/30/24 22:00 Heparin Sodium (Porcine) 5,000 units Q12HR SC 10/01/24 10:00 10/03/24 22:41 5,000 UNITS Amlodipine Besylate 10 mg DAILY PO 10/02/24 10:00 Carvedilol 12.5 mg Q12HR PO 10/01/24 22:00 10/03/24 22:44 12.5 MG Levetiracetam 500 mg POSTDI PO 10/01/24 20:00 10/02/24 21:22 500 MG Sevelamer HCl 800 mg TIDWM PO 10/02/24 08:00 10/04/24 12:51 800 MG Dorzolamide/ Timolol 1 drop BID EACHEYE 10/01/24 22:00 Hydralazine HCl 20 mg Q6HP PRN IV 10/02/24 15:45 Patient Own Medication 1 mirta HS OP 10/02/24 22:00 Famotidine 20 mg DAILY PO 10/03/24 10:00 10/04/24 10:31 20 MG Brimonidine Tartrate 1 drop DAILY EACHEYE 10/03/24 10:00 10/04/24 10:33 1 DROP Vancomycin HCl 0 ml @ 0 mls/hr UD IV 10/04/24 17:45 Cefepime HCl 50 ml @ 12.5 mls/hr Q24H IV 10/04/24 22:00 Examination General Appearance: Alert, Oriented X3, Cooperative, No acute distress HEENT: Atraumatic, PERRLA, EOMI, Mucous membrane moist/pink Respiratory: Clear to auscultation, Normal air movement Cardiovascular: Regular rate, Normal S1, Normal S2, No murmurs, no chest wall tenderness Abdominal: Normal bowel sounds, Soft, No tenderness, No hepatospenomegaly, No masses Extremities: No clubbing, No cyanosis, No edema, Normal pulses, No tenderness/swelling Skin: painful red lesion on the left buttock with multiple sinuses draining pus and scar tissue from previous healed abscesses on the arm, arm bed, and right buttock, incision and drainage performed, dressing is clean with some drainage from the incision site. laboratory and microbiology Laboratory Tests 10/04/24 06:11 Test 10/04/24 06:11 Range/Units Serum Glucose 85 74-106 mg/dL Microbiology Date/Time Source Procedure Growth Status 10/03/24 11:24 Buttock Left Gram Stain - Final Resulted 10/03/24 11:24 Buttock Left Anaerobic Culture Pending Resulted 10/03/24 11:24 Buttock Left Aerobic Culture - Preliminary Resulted Labs and/or images reviewed: Labs reviewed by me, Image(s) reviewed by me Problem List/Assessment/Plan Problem List/Assessment/Plan Abscess/Cellulitis of the left buttock Left side dark red lesion with multiple draining sinuses Surgery on the board, incision and drainage performed Patient has spike a fever up to 100.3 Stopped IV clindamycin Start vancomycin and cefepime Blood culture Wound culture Continue Topical mupirocin Wound consult ESRD on hemodialysis Patient is on hemodialysis 3 times a week Tuesday, and Tuesday Dialysis performed today and 2 L of removed Continue sevelamer Uncontrolled hypertension Continue amlodipine Continue carvedilol IV hydralazine 20 mg q.6 hours p.r.n. History of seizure Continue Keppra tablet DVT prophylaxis Heparin 5000 units SC b.i.d. Transaminitis Monitoring Hyperphosphatemia Continue sevelamer Secondary hyperparathyroidism Parathyroidectomy has been performed Monitoring Mild hyperkalemia Monitoring Glaucoma Continue home medication Diet Renal Code status Full Code Case discussed with Dr. Watkins Plan discussed with: Patient, Other (RN) My Orders My Orders Orders - RAFI NICOLAS RESDIADALID Procedure Category Date Status Time Blood Culture TAI 10/04/24 In Process 10:02 Vancomycin Per PHA 10/04/24 In Process Pharmacy 17:45 Cefepime 1gm/ 50ml PHA 10/04/24 In Process (Maxipime 1gm/50ml) 22:00 Vancomycin 1gm/200ml PHA 10/04/24 In Process [facility] 18:00 Creatinine LAB 10/05/24 Verified 05:00 Vancomycin,Random LAB 10/05/24 Verified 05:00 Dietary Evaluation Review Comments: Follow renal standard diet and his HD protocol, encourage PO intake to meet at least 75% of his needs. Expected Outcomes/Goals: Less uremic symptoms. Date of Service: Oct 04, 2024 Billing Provider: FAIZA CA MD Common Visit Codes: [id number] INP/OBS CARE(HIGH) RAFI NICOLAS RESDIENT Oct 04, 2024 18:35 FAIZA CA MD Oct 04, 2024 19:15
[2024-10-04] MEDS: VANCOMYCIN 1GM/200ML PREMIX 200 ML IV ONE (18:49)
[2024-10-04] MEDS ORDERED: CEFEPIME 1GM/ 50ML 50 ML IV SCH (22:00)
[2024-10-04] MEDS: CEFEPIME 1GM/ 50ML 50 ML IV SCH (22:39)
[2024-10-05] VITALS (9 sets, daily range): BP systolic 115–144; BP diastolic 43–75; PULSE 87–97; RESP 17–18; TEMP 97.6–99.5; O2SAT 90–97
[2024-10-05 05:29] LABS: Basophils # (auto) 0 10 ^3/uL (0-0.2); Basophils % (auto) 0.4 % (0.0-2.0); Eosinophils # (auto) 0.2 10 ^3/uL (0-0.8); Hemoglobin 8.4 g/dL (13.5-17.5); Lymphocytes # (auto) 1.3 10 ^3/uL (0.4-5.4); Red Cell Distribution Width 18.3 % (11.8-14.3)
[2024-10-05 05:32] LABS: Eosinophils % (auto) 2.1 % (0.0-7.0); Hematocrit 26.6 % (41.0-53.0); Lymphocytes % (auto) 16.8 % (10.0-50.0); Mean Corpuscular Hgb Conc. 31.8 g/dL (32.0-36.0); Mean Corpuscular Volume 78.6 fL (80.0-100.0); Monocytes # (auto) 1.1 10 ^3/uL (0-1.3); Neutrophils # (auto) 5.1 10 ^3/uL (1.6-8.6); Neutrophils % (auto) 66.7 % (37.0-80.0); Nucleated Red Blood Cells % 0.1 %; Platelet Count (auto) 197 10^3/uL (140-450); Red Blood Cells 3.38 10^6/uL (4.5-5.90); White Blood Cell 7.6 10^3/uL (4.4-10.8)
[2024-10-05 05:41] LABS: Chloride 99 mmol/L (98-107); Potassium 4.6 mmol/L (3.5-5.1); Sodium 140 mmol/L (136-145)
[2024-10-05 05:42] LABS: Anion Gap 12 (5-15); Carbon Dioxide 29 mmol/L (20-31)
[2024-10-05 05:43] LABS: Calcium 8.6 mg/dL (8.7-10.4)
[2024-10-05 05:47] LABS: Glucose 105 mg/dL (74-106)
[2024-10-05 05:48] LABS: BUN/Creatinine Ratio 3.9 (10.0-20.0)
[2024-10-05 05:49] LABS: Blood Urea Nitrogen 44 mg/dL (9-23)
[2024-10-05 10:53] LABS: % Iron Saturation 15.8 % (20-55)
--- NOTE | 2024-10-05 11:04 | DVHPN2 ---
Progress Note Date Seen: Oct 05, 2024 Has the PT tested + for MRSA If YES, has PT been informed?: No Medical Necessity Reason Pt with a Central, PICC or Fol: No Objective vital signs Vital Sign Date Time Temp Pulse Resp B/P (MAP) Pulse Ox O2 Delivery O2 Flow Rate FiO2 10/05/24 10:57 135/71 10/05/24 10:56 91 10/05/24 09:00 98.2 18 95 98.2 10/04/24 20:00 Room Air* 0 21 Total Intake and Output 10/04/24 10/04/24 10/05/24 15:00 23:00 07:00 Intake Total 550 ml Output Total 650 ml Balance -100 ml medications Current Medications Medications Dose Ordered Sig/Dane Route Start Time Stop Time Status Last Admin Dose Admin Sodium Chloride 10 ml Q8HR IV 09/30/24 22:00 10/05/24 07:49 10 ML Acetaminophen/ Hydrocodone Bitart 1 tab Q4HP PRN PO 09/30/24 22:00 10/05/24 02:17 1 TAB Nitroglycerin 0.4 mg Q5MINP PRN SL 09/30/24 22:00 Morphine Sulfate 2 mg Q30M PRN IV 09/30/24 22:00 Heparin Sodium (Porcine) 5,000 units Q12HR SC 10/01/24 10:00 10/05/24 10:59 5,000 UNITS Amlodipine Besylate 10 mg DAILY PO 10/02/24 10:00 10/05/24 10:57 10 MG Carvedilol 12.5 mg Q12HR PO 10/01/24 22:00 10/05/24 10:56 12.5 MG Levetiracetam 500 mg POSTDI PO 10/01/24 20:00 10/02/24 21:22 500 MG Sevelamer HCl 800 mg TIDWM PO 10/02/24 08:00 10/05/24 08:20 800 MG Dorzolamide/ Timolol 1 drop BID EACHEYE 10/01/24 22:00 Hydralazine HCl 20 mg Q6HP PRN IV 10/02/24 15:45 Patient Own Medication 1 mirta HS OP 10/02/24 22:00 Famotidine 20 mg DAILY PO 10/03/24 10:00 10/05/24 10:56 20 MG Brimonidine Tartrate 1 drop DAILY EACHEYE 10/03/24 10:00 10/05/24 10:57 1 DROP Vancomycin HCl 0 ml @ 0 mls/hr UD IV 10/04/24 17:45 Ceftriaxone Sodium 50 ml @ 100 mls/hr DAILY@09 IV 10/06/24 09:00 laboratory and microbiology Laboratory Tests 10/05/24 05:19 Test 10/05/24 05:19 Range/Units Serum Glucose 105 74-106 mg/dL Problem List/Assessment/Plan Problem List/Assessment/Plan 10/05/24 cleared for discharge home with home health wound care Plan discussed with: Patient Dietary Evaluation Review Comments: Follow renal standard diet and his HD protocol, encourage PO intake to meet at least 75% of his needs. Expected Outcomes/Goals: Less uremic symptoms. ODETTE SALAZAR MD Oct 05, 2024 11:04
--- NOTE | 2024-10-05 13:11 | DVHPNRES ---
Progress Note Date Seen: Oct 05, 2024 Resident Creating Document: RAFI NICOLAS YEHUDA Has the PT tested + for MRSA If YES, has PT been informed?: No Medical Necessity Reason Pt with a Central, PICC or Fol: No Subjective Review of Systems Patient seen examined at the bedside. Patient is feeling better. Objective vital signs Vital Sign Date Time Temp Pulse Resp B/P (MAP) Pulse Ox O2 Delivery O2 Flow Rate FiO2 10/05/24 10:57 135/71 10/05/24 10:56 91 10/05/24 09:00 98.2 18 95 98.2 10/04/24 20:00 Room Air* 0 21 Total Intake and Output 10/04/24 10/04/24 10/05/24 15:00 23:00 07:00 Intake Total 550 ml Output Total 650 ml Balance -100 ml medications Current Medications Medications Dose Ordered Sig/Dane Route Start Time Stop Time Status Last Admin Dose Admin Sodium Chloride 10 ml Q8HR IV 09/30/24 22:00 10/05/24 07:49 10 ML Acetaminophen/ Hydrocodone Bitart 1 tab Q4HP PRN PO 09/30/24 22:00 10/05/24 02:17 1 TAB Nitroglycerin 0.4 mg Q5MINP PRN SL 09/30/24 22:00 Morphine Sulfate 2 mg Q30M PRN IV 09/30/24 22:00 Heparin Sodium (Porcine) 5,000 units Q12HR SC 10/01/24 10:00 10/05/24 10:59 5,000 UNITS Amlodipine Besylate 10 mg DAILY PO 10/02/24 10:00 10/05/24 10:57 10 MG Carvedilol 12.5 mg Q12HR PO 10/01/24 22:00 10/05/24 10:56 12.5 MG Levetiracetam 500 mg POSTDI PO 10/01/24 20:00 10/02/24 21:22 500 MG Sevelamer HCl 800 mg TIDWM PO 10/02/24 08:00 10/05/24 08:20 800 MG Dorzolamide/ Timolol 1 drop BID EACHEYE 10/01/24 22:00 Hydralazine HCl 20 mg Q6HP PRN IV 10/02/24 15:45 Patient Own Medication 1 mirta HS OP 10/02/24 22:00 Famotidine 20 mg DAILY PO 10/03/24 10:00 10/05/24 10:56 20 MG Brimonidine Tartrate 1 drop DAILY EACHEYE 10/03/24 10:00 10/05/24 10:57 1 DROP Vancomycin HCl 0 ml @ 0 mls/hr UD IV 10/04/24 17:45 Ceftriaxone Sodium 50 ml @ 100 mls/hr DAILY@09 IV 10/06/24 09:00 Examination General Appearance: Alert, Oriented X3, Cooperative, No acute distress HEENT: Atraumatic, PERRLA, EOMI, Mucous membrane moist/pink Respiratory: Clear to auscultation, Normal air movement Cardiovascular: Regular rate, Normal S1, Normal S2, No murmurs, no chest wall tenderness Abdominal: Normal bowel sounds, Soft, No tenderness, No hepatospenomegaly, No masses Extremities: No clubbing, No cyanosis, No edema, Normal pulses, No tenderness/swelling Skin: incision and drainage performed, dressing is clean with scant amount of drainage from the incision site. laboratory and microbiology Laboratory Tests 10/05/24 05:19 Test 10/05/24 05:19 Range/Units Serum Glucose 105 74-106 mg/dL Microbiology Date/Time Source Procedure Growth Status 10/04/24 12:25 Blood Blood Culture - Preliminary NO GROWTH AFTER 24 HOURS OF INCUBATION. Resulted 10/03/24 11:24 Buttock Left Gram Stain - Final Resulted 10/03/24 11:24 Buttock Left Anaerobic Culture - Preliminary Resulted 10/03/24 11:24 Buttock Left Aerobic Culture - Preliminary Resulted Labs and/or images reviewed: Labs reviewed by me, Image(s) reviewed by me Problem List/Assessment/Plan Problem List/Assessment/Plan Abscess/Cellulitis of the left buttock Surgery on the board, incision and drainage has been performed, recommended home health wound care Patient had spike fever, currently afebrile Stopped cefepime Continue vancomycin Start ceftriaxone Blood culture, waiting results Wound culture, awaiting results G stain from wound sample shows Gram-positive cocci in clusters and pairs Continue Topical mupirocin Wound consult ESRD on hemodialysis Patient is on hemodialysis 3 times a week Tuesday, and Tuesday Dialysis performed yesterday and 2 L of removed Continue sevelamer Uncontrolled hypertension Continue nifedipine Continue carvedilol IV hydralazine 20 mg q.6 hours p.r.n. Hyperkalemia Normalized History of seizure Continue Keppra tablet DVT prophylaxis Heparin 5000 units SC b.i.d. Transaminitis Monitoring Moderate anemia, hypochromic microcytic Check iron panel and ferritin Hyperphosphatemia Continue sevelamer Secondary hyperparathyroidism Parathyroidectomy has been performed Monitoring Mild hyperkalemia Monitoring Glaucoma Continue home medication Diet Renal Code status Full Code Case discussed with Dr. Watkins Plan discussed with: Patient, Other (RN) My Orders My Orders Orders - RAFI NICOLAS RESDIADALID Procedure Category Date Status Time Vancomycin Per PHA 10/04/24 In Process Pharmacy 17:45 Vancomycin PHA 10/05/24 In Process 750mg/150ml 20:00 Vancomycin,Random LAB 10/06/24 Verified 04:00 Complete Blood Count LAB 10/06/24 Verified 04:00 Creatinine LAB 10/06/24 Verified 04:00 Vancomycin Per [facility] 10/05/24 In Process Pharmacy [facility] 09:03 Ceftriaxone 1gm/50ml PHA 10/06/24 In Process D5w (Rocephin) 09:00 Dietary Evaluation Review Comments: Follow renal standard diet and his HD protocol, encourage PO intake to meet at least 75% of his needs. Expected Outcomes/Goals: Less uremic symptoms. Date of Service: Oct 05, 2024 Billing Provider: FAIZA CA MD Common Visit Codes: [id number] INP/OBS CARE(HIGH) RAFI NICOLAS RESDIADALID Oct 05, 2024 13:11 FAIZA CA MD Oct 06, 2024 19:58
--- NOTE | 2024-10-05 15:58 | DVHPN2 ---
Progress Note - Dictate Date Seen: Oct 05, 2024 Has the PT tested + for MRSA If YES, has PT been informed?: No Medical Necessity Reason Pt with a Central, PICC or Fol: No Subjective Low grade fever yesterday vital signs Vital Sign Date Time Temp Pulse Resp B/P (MAP) Pulse Ox O2 Delivery O2 Flow Rate FiO2 10/05/24 13:00 98.1 87 17 135/75 (95) 93 98.1 10/05/24 10:00 Room Air 0.0 10/05/24 10:00 21 Total Intake and Output 10/04/24 10/04/24 10/05/24 15:00 23:00 07:00 Intake Total 550 ml Output Total 650 ml Balance -100 ml medications Current Medications Medications Dose Ordered Sig/Dane Route Start Time Stop Time Status Last Admin Dose Admin Sodium Chloride 10 ml Q8HR IV 09/30/24 22:00 10/05/24 07:49 10 ML Acetaminophen/ Hydrocodone Bitart 1 tab Q4HP PRN PO 09/30/24 22:00 10/05/24 02:17 1 TAB Nitroglycerin 0.4 mg Q5MINP PRN SL 09/30/24 22:00 Morphine Sulfate 2 mg Q30M PRN IV 09/30/24 22:00 Heparin Sodium (Porcine) 5,000 units Q12HR SC 10/01/24 10:00 10/05/24 10:59 5,000 UNITS Amlodipine Besylate 10 mg DAILY PO 10/02/24 10:00 10/05/24 10:57 10 MG Carvedilol 12.5 mg Q12HR PO 10/01/24 22:00 10/05/24 10:56 12.5 MG Levetiracetam 500 mg POSTDI PO 10/01/24 20:00 10/02/24 21:22 500 MG Sevelamer HCl 800 mg TIDWM PO 10/02/24 08:00 10/05/24 13:30 800 MG Dorzolamide/ Timolol 1 drop BID EACHEYE 10/01/24 22:00 Hydralazine HCl 20 mg Q6HP PRN IV 10/02/24 15:45 Patient Own Medication 1 mirta HS OP 10/02/24 22:00 Famotidine 20 mg DAILY PO 10/03/24 10:00 10/05/24 10:56 20 MG Brimonidine Tartrate 1 drop DAILY EACHEYE 10/03/24 10:00 10/05/24 10:57 1 DROP Vancomycin HCl 0 ml @ 0 mls/hr UD IV 10/04/24 17:45 Ceftriaxone Sodium 50 ml @ 100 mls/hr DAILY@09 IV 10/06/24 09:00 objective General Appearance: Alert, Oriented X3, Cooperative, No acute distress HEENT: Atraumatic, PERRLA, EOMI, Mucous membrane moist/pink Respiratory: Clear to auscultation, Normal air movement Cardiovascular: Regular rate, Normal S1, Normal S2, No murmurs, no chest wall tenderness Abdominal: Normal bowel sounds, Soft, No tenderness, No hepatospenomegaly, No masses Extremities: No edema . Left buttock abscess laboratory and microbiology Laboratory Tests 10/05/24 05:19 Test 10/05/24 05:19 Range/Units Serum Glucose 105 74-106 mg/dL Problem List ESRD on HD Left gluteal abscess s/p I&D HTN Secondary Hyperparathyroidism Assessment/Plan Continue dialysis on TTS schedule. Continue with IV antibiotics. On Vanco and Cefepime s/p I and D dc planning as per primary Dietary Evaluation Review Comments: Follow renal standard diet and his HD protocol, encourage PO intake to meet at least 75% of his needs. Expected Outcomes/Goals: Less uremic symptoms. Plan discussed with: Patient EVANGELISTA MUÑOZ MD Oct 05, 2024 15:58
[2024-10-05] MEDS: VANCOMYCIN 750mg/150ml 150 ML IV ONE (20:35)
[2024-10-06 01:00] VITALS: BP 149/84; PULSE 88; RESP 18; TEMP 97.9; O2SAT 94
[2024-10-06 05:00] VITALS: BP 144/72; PULSE 90; RESP 18; TEMP 97.9; O2SAT 94
[2024-10-06 06:28] LABS: Eosinophils # (auto) 0.4 10 ^3/uL (0-0.8); Hemoglobin 8.4 g/dL (13.5-17.5); Lymphocytes # (auto) 1.5 10 ^3/uL (0.4-5.4); Mean Corpuscular Hgb Conc. 31.8 g/dL (32.0-36.0); White Blood Cell 7.9 10^3/uL (4.4-10.8)
[2024-10-06 06:30] LABS: Basophils # (auto) 0.1 10 ^3/uL (0-0.2); Basophils % (auto) 0.7 % (0.0-2.0); Eosinophils % (auto) 4.6 % (0.0-7.0); Hematocrit 26.4 % (41.0-53.0); Lymphocytes % (auto) 18.8 % (10.0-50.0); Mean Corpuscular Hemoglobin 25.6 pg (28.0-32.0); Mean Corpuscular Volume 80.4 fL (80.0-100.0); Monocytes % (auto) 12.1 % (0.0-12.0); Neutrophils % (auto) 63.8 % (37.0-80.0); Platelet Count (auto) 200 10^3/uL (140-450); Red Blood Cells 3.28 10^6/uL (4.5-5.90); Red Cell Distribution Width 18.1 % (11.8-14.3)
[2024-10-06 06:38] LABS: Calcium 8.7 mg/dL (8.7-10.4); Chloride 99 mmol/L (98-107); Potassium 4.8 mmol/L (3.5-5.1); Sodium 138 mmol/L (136-145)
[2024-10-06 06:39] LABS: Anion Gap 14 (5-15); Carbon Dioxide 25 mmol/L (20-31)
[2024-10-06 06:44] LABS: BUN/Creatinine Ratio 3.9 (10.0-20.0); Blood Urea Nitrogen 49 mg/dL (9-23); Glucose 103 mg/dL (74-106)
[2024-10-06] MEDS: SODIUM CHL 0.9% 1000 ML BAG XX ONE (07:00)
[2024-10-06 08:00] VITALS: PULSE 91; RESP 16; O2SAT 98
[2024-10-06 09:00] VITALS: BP 140/83; PULSE 91; RESP 16; TEMP 98.4; O2SAT 98
[2024-10-06 10:00] VITALS: O2SAT 98
--- NOTE | 2024-10-06 12:05 | DVHPN2 ---
Progress Note - Dictate Date Seen: Oct 06, 2024 Has the PT tested + for MRSA If YES, has PT been informed?: No Medical Necessity Reason Pt with a Central, PICC or Fol: No Subjective Undergoing dialysis at the time of my examination Target UF 2 L. Blood cultures preliminary with no growth. vital signs Vital Sign Date Time Temp Pulse Resp B/P (MAP) Pulse Ox O2 Delivery O2 Flow Rate FiO2 10/06/24 09:00 98.4 91 16 140/83 (102) 98 98.4 10/05/24 20:00 Room Air* 0 21 Total Intake and Output 10/05/24 10/05/24 10/06/24 15:00 23:00 07:00 Intake Total 140 ml 350 ml Balance 140 ml 350 ml medications Current Medications Medications Dose Ordered Sig/Dane Route Start Time Stop Time Status Last Admin Dose Admin Sodium Chloride 10 ml Q8HR IV 09/30/24 22:00 10/05/24 22:00 10 ML Acetaminophen/ Hydrocodone Bitart 1 tab Q4HP PRN PO 09/30/24 22:00 10/05/24 02:17 1 TAB Nitroglycerin 0.4 mg Q5MINP PRN SL 09/30/24 22:00 Morphine Sulfate 2 mg Q30M PRN IV 09/30/24 22:00 Heparin Sodium (Porcine) 5,000 units Q12HR SC 10/01/24 10:00 10/05/24 22:00 5,000 UNITS Amlodipine Besylate 10 mg DAILY PO 10/02/24 10:00 10/05/24 10:57 10 MG Carvedilol 12.5 mg Q12HR PO 10/01/24 22:00 10/05/24 21:57 12.5 MG Levetiracetam 500 mg POSTDI PO 10/01/24 20:00 10/02/24 21:22 500 MG Sevelamer HCl 800 mg TIDWM PO 10/02/24 08:00 10/06/24 08:22 800 MG Dorzolamide/ Timolol 1 drop BID EACHEYE 10/01/24 22:00 Hydralazine HCl 20 mg Q6HP PRN IV 10/02/24 15:45 Patient Own Medication 1 mirta HS OP 10/02/24 22:00 Famotidine 20 mg DAILY PO 10/03/24 10:00 10/05/24 10:56 20 MG Brimonidine Tartrate 1 drop DAILY EACHEYE 10/03/24 10:00 10/05/24 10:57 1 DROP Vancomycin HCl 0 ml @ 0 mls/hr UD IV 10/04/24 17:45 Ceftriaxone Sodium 50 ml @ 100 mls/hr DAILY@09 IV 10/06/24 09:00 objective General Appearance: Alert, Oriented X3, Cooperative, No acute distress HEENT: Atraumatic, PERRLA, EOMI, Mucous membrane moist/pink Respiratory: Clear to auscultation, Normal air movement Cardiovascular: Regular rate, Normal S1, Normal S2, No murmurs, no chest wall tenderness Abdominal: Normal bowel sounds, Soft, No tenderness, No hepatospenomegaly, No masses Extremities: No edema . Left buttock abscess laboratory and microbiology Laboratory Tests 10/06/24 05:28 Test 10/06/24 05:28 Range/Units Serum Glucose 103 74-106 mg/dL Problem List ESRD on HD Left gluteal abscess s/p I&D HTN Secondary Hyperparathyroidism Assessment/Plan Patient is cleared from renal standpoint for discharge. Continue with IV antibiotics. Discharge plan as per primary. Dietary Evaluation Review Comments: Follow renal standard diet and his HD protocol, encourage PO intake to meet at least 75% of his needs. Expected Outcomes/Goals: Less uremic symptoms. Plan discussed with: Patient EVANGELISTA MUÑOZ MD Oct 06, 2024 12:05
[2024-10-06] MEDS: cefTRIAXone 1GM/50ML D5W 50 ML IV SCH (13:02)
--- NOTE | 2024-10-06 13:05 | DVHDSRES ---
Discharge Summary Date of Admission Resident Creating Document: TABATHA COLE Sep 30, 2024 at 21:55 Date of Discharge: Oct 06, 2024 Labs/Diagnostic Data: Laboratory Results Test 10/06/24 05:28 10/05/24 05:19 10/03/24 05:59 10/01/24 20:17 White Blood Count 7.9 10^3/uL (4.4-10.8) Red Blood Count 3.28 10^6/uL (4.5-5.90) Hemoglobin 8.4 g/dL (13.5-17.5) Hematocrit 26.4 % (41.0-53.0) Mean Corpuscular Volume 80.4 fL (80.0-100.0) Mean Corpuscular Hemoglobin 25.6 pg (28.0-32.0) Mean Corpuscular Hemoglobin Concent 31.8 g/dL (32.0-36.0) Red Cell Distribution Width 18.1 % (11.8-14.3) Platelet Count 200 10^3/uL (140-450) Mean Platelet Volume 9.1 fL (6.9-10.8) Neutrophils (%) (Auto) 63.8 % (37.0-80.0) Lymphocytes (%) (Auto) 18.8 % (10.0-50.0) Monocytes (%) (Auto) 12.1 % (0.0-12.0) Eosinophils (%) (Auto) 4.6 % (0.0-7.0) Basophils (%) (Auto) 0.7 % (0.0-2.0) Neutrophils # (Auto) 5.0 10 ^3/uL (1.6-8.6) Lymphocytes # (Auto) 1.5 10 ^3/uL (0.4-5.4) Monocytes # (Auto) 1.0 10 ^3/uL (0-1.3) Eosinophils # (Auto) 0.4 10 ^3/uL (0-0.8) Basophils # (Auto) 0.1 10 ^3/uL (0-0.2) Nucleated Red Blood Cells 0.0 % Sodium Level 138 mmol/L (136-145) Potassium Level 4.8 mmol/L (3.5-5.1) Chloride Level 99 mmol/L (98-107) Carbon Dioxide Level 25 mmol/L (20-31) Anion Gap 14 (5-15) Blood Urea Nitrogen 49 mg/dL (9-23) Creatinine 12.65 mg/dL (0.700-1.30) Glomerular Filtration Rate Calc 4 mL/min (>90) BUN/Creatinine Ratio 3.9 (10.0-20.0) Serum Glucose 103 mg/dL (74-106) Calcium Level 8.7 mg/dL (8.7-10.4) Random Vancomycin Level 25.5 ug/mL (5-10) Iron Level 24 ug/dL (65-175) Total Iron Binding Capacity 152 ug/dL (250-425) Percent Iron Saturation 15.8 % (20-55) Ferritin 2274.2 ng/mL (22-322) Hemoglobin A1c 4.9 % A1C (<5.7) Lactic Acid Level 1.4 mmol/L (0.4-2.0) Test 10/01/24 05:05 09/30/24 23:30 Phosphorus Level 6.8 mg/dL (2.4-5.1) Total Bilirubin 0.2 mg/dL (0.2-1.0) Aspartate Amino Transferase (AST) 10 U/L (13-40) Alanine Aminotransferase (ALT) < 9 U/L (7-40) Alkaline Phosphatase 53 U/L (46-116) Total Protein 7.4 g/dL (5.7-8.2) Albumin 3.8 g/dL (3.2-4.8) Prothrombin Time 11.1 sec (9.3-11.8) Prothrombin Time INR 1.05 (0.9-1.15) Activated Partial Thromboplast Time 33.1 SEC (24.5-34.5) Other Laboratory Tests 10/06/24 05:28 Brief Hx & Hospital Course: 59-year-old male with past medical history of hypertension and end-stage renal disease presented with chief complaining of draining lesion in the left buttock for last one month. Patient mentioned that the lesion has been draining pus mixed with blood for last three weeks. Patient went to urgent Care and took antibiotics but it did not improve his symptoms and he was having continuous discharge. Patient also mentioned associated fever and chills. Surgery was consulted. Patient underwent incision and drainage. Patient was started on IV clindamycin. [employer] was consulted and patient had received dialysis in the hospital. Patient's hypokalemia was corrected. Patient was continued on home medication for hypertension and was started on IV hydralazine 10 mg q.6 p.r.n.. Patient was started on DVT prophylaxis with the heparin. Patient had fever in the hospital after later resolved. Blood culture did not show any growth in 1st 48 hours. Patient was continued on IV antibiotics Patient mentioned improvement in his symptoms . Family Physician were consulted to arrange home health for wound dressing 3 times per week at home. At the time of discharge patient was stable vitals, and no new complaints. Discharge plan was discussed with the patient and patient was discharged with oral antibiotics. Patient was advised to follow up with PCP within one week and cat scan technologist within 1-2 week. Patient was also advised to follow surgeon within 1-2 weeks. Physical exam General Appearance: Alert, Oriented X3, Cooperative, No acute distress HEENT: Atraumatic, PERRLA, EOMI, Mucous membrane moist/pink Respiratory: Clear to auscultation, Normal air movement Cardiovascular: Regular rate, Normal S1, Normal S2, No murmurs, no chest wall tenderness Abdominal: Normal bowel sounds, Soft, No tenderness, No hepatospenomegaly, No masses Extremities: No clubbing, No cyanosis, No edema, Normal pulses, No tenderness/swelling Skin: incision and drainage performed, dressing is clean with scant amount of drainage from the incision site. laboratory and microbiology Consults/Reason for consult Nephrology for end-stage renal disease Operations or Procedures Operative Report - 2 Report Details Date: 10/03/24 Preop Diagnosis: MULTIPLE LEFT BUTTOCK ABSCESS Postop Diagnosis: MULTIPLE LEFT BUTTOCK ABSCESS Surgeon: Dr. Jasmeet Apodaca [employer] Director: JOHN Bay Anesthesiologist: Dr. Lemos Anesthesia: General Consent: The patient was informed of the risks and benefits of the procedure. These include but are not limited to complications of anesthesia, postoperative infection, incomplete relief of symptoms, recurrence of symptoms, damage to blood vessels, nerves and tendons, deep venous thrombosis, pulmonary embolism and possible need for repeat surgery in the future. Name of Procedure Performed incision and drainage of multiple left buttock abscess Procedure Details Procedure Details: Under the supervision of Dr. Apodaca and adequate anesthesia the patient was positioned in a right lateral position. The area was prepped and draped. Multiple incisions were made and purulent drainage was expelled. All incision sites were irrigated with normal saline and packed with 1/4 inch iodoform. Dressing was placed and secured with tape. All blade, needles and sponge counts were correct. Patient was transferred to recovery with out incident. Specimen: wound tissues , purulent drainage Condition at Discharge: Good Final Diagnosis/Problems List MULTIPLE LEFT BUTTOCK ABSCESS status post I and D Hypertension End-stage renal disease on dialysis hyperkalemia history of seizure Discharge Disposition: Home with Health Services Discharge Instruct/Medications Follow Up/Referral: Follow up with PCP within one week Follow up with cat scan technologist within 1-2 week Follow up with surgeon within 1-2 week Medications: clindamycin Discharge Statement: "Patient was advised to return to the ER or call 911 if any headaches, dizziness, shortness of breath, chest pain, abdominal pain, bleeding, fevers, or worsening of medical condition. Patient was counseled about treatment plan, medications, possible side effects, patientverbalized understanding. All questions were answered to the best of my ability. This discharge took greater then 30 minutes in planning, reviewing documentation, counseling the patient, and discussing with other team members." ASSESSMENT ASSESSMENT Assessment MULTIPLE LEFT BUTTOCK ABSCESS Date of Service: Oct 06, 2024 Billing Provider: DEWEY WEEKS DO Common Visit Codes: 88497-INK/OBS DISCH DAY >30min TABATHA COLE RESIDENT Oct 06, 2024 13:05 DEWEY WEEKS DO Oct 08, 2024 21:35
[2024-10-06 16:26] VITALS: BP 142/86; PULSE 91; RESP 16; TEMP 98.4; O2SAT 98
[2024-10-06] MEDS ORDERED: EPOETIN ALFA-EPBX 4,000 UNIT/ML VIAL SC ONE (21:00)
[2024-10-08 08:39] LABS: Hepatitis B Surface Antigen Negative (Negative)
[2024-10-08 09:00] LABS: Hepatitis A Ab IgM Negative; Hepatitis B Core IgM Negative
[2024-10-08 09:01] LABS: Hepatitis C Antibody Negative (Negative)
== END 2024-10-06 17:00 | disposition home health service (06) | DRG 720 ==
LOC: ER 12:00 → OVERFLOW 21:55 → CENTRAL 10-01 03:55
PROVIDERS: ADMIT Student in an Organized Health Care Education/Training Program; ATTEND Student in an Organized Health Care Education/Training Program
PROC: 5A1D70Z Performance of Urinary Filtration, Intermittent, Less than 6 Hours Per Day (ICD-10-PCS; 2024-10-02)
PROC: 0Y910ZZ Drainage of Left Buttock, Open Approach (ICD-10-PCS; principal; 2024-10-03 11:02)
PROC: 5A1D70Z Performance of Urinary Filtration, Intermittent, Less than 6 Hours Per Day (ICD-10-PCS; 2024-10-04)
PROC: 5A1D70Z Performance of Urinary Filtration, Intermittent, Less than 6 Hours Per Day (ICD-10-PCS; 2024-10-06)
DX: A41.9 Sepsis, unspecified organism (principal); I12.0 Hypertensive chronic kidney disease with stage 5 chronic kidney disease or end stage renal disease; E83.39 Other disorders of phosphorus metabolism; N18.6 End stage renal disease; N25.81 Secondary hyperparathyroidism of renal origin; L03.317 Cellulitis of buttock; L02.31 Cutaneous abscess of buttock; E87.5 Hyperkalemia; H40.89 Other specified glaucoma; D64.9 Anemia, unspecified; R74.01 Elevation of levels of liver transaminase levels; Z83.3 Family history of diabetes mellitus; Z99.2 Dependence on renal dialysis; Z82.49 Family history of ischemic heart disease and other diseases of the circulatory system; Z79.899 Other long term (current) drug therapy
CPT/HCPCS: 36415; 71045; 80048; 80053; 80074; 80202; 82728; 83036; 83540; 83550; 83605; 84100; 85025; 85610; 85730; 86850; 86900; 86901; 87040; 87070; 87075; 87081; 87205; 90935; 94640; 96365; 99291; G0378; J1642; J2405; J2704; J3490